=== PATIENT | female | born 1960 | race Caucasian/White ===

== ENCOUNTER → 2020-01-19 07:17 | Outpatient (CLI) | payer OTHER, SELFPAY ==
--- NOTE | ~2020-01-19 | MM_ITS ---
EXAMINATION: MM screening to[facility] BI w flroes HISTORY: Screening mammogram, family history of breast cancer in her mother. TECHNIQUE: Craniocaudal and mediolateral oblique 3-D tomosynthesis images were obtained and synthetic 2-D images were generated. CAD analysis was submitted and interpreted. COMPARISON: 11/24/2018, 10/17/2017, 02/27/2016 BREAST PARENCHYMAL COMPOSITION: The breasts are almost entirely fatty. FINDINGS: There is no evidence of suspicious mass, calcification, or architectural distortion to sugg est malignancy in either breast. There has been no suspicious interval change. IMPRESSION: 1. No mammographic evidence of malignancy. 2. Recommend routine screening mammography in one year. BI-RADS Category 1: Negative Reviewed, dictated and finalized at location A. [employer]
== END ==
PROVIDERS: Visit Provider Obstetrics & Gynecology
DX: Z12.31 Encounter for screening mammogram for malignant neoplasm of breast (principal)
CPT/HCPCS: 77063; 77067

== ENCOUNTER → 2021-09-05 10:45 | Outpatient (CLI) | payer OTHER, SELFPAY ==
--- NOTE | ~2021-09-05 | MM_ITS ---
EXAMINATION: MM screening to[facility] BI w flores HISTORY: Screening TECHNIQUE: Craniocaudal and mediolateral oblique 3-D tomosynthesis images were obtained and synthetic 2-D images were generated. CAD analysis was submitted and interpreted. COMPARISON: Comparison to multiple prior studies sequentially, with oldest reviewed study dated 02/09. BREAST PARENCHYMAL COMPOSITION: Breast composition is almost entirely fatty FINDINGS: There is no evidence of suspicious mass, calcification, or architectural distortion to sugg est malignancy in either breast. There has been no suspicious interval change. IMPRESSION: 1. No mammographic evidence of malignancy. 2. Recommend routine screening mammography in one year. BI-RADS Category 1: Negative Reviewed, dictated and finalized at location A.
--- NOTE | ~2021-09-05 | XR_ITS ---
XR hip LT 2V w AP pelvis DATE: 09/05/2021 11:51 INDICATION: Left hip pain TECHNIQUE: AP pelvis AP and lateral views of left hip COMPARISON: None FINDINGS: The pubic symphysis and sacroiliac joints are intact. No pelvic fracture or bone destructio n. There is moderate osteoarthritic change at both hip joints including moderate joint space narrowing a nd spurring. No fracture or dislocation, avascular necrosis or bone destruction of the left hip is de tected. There is a very prominent amount of fecal material in the colon. IMPRESSION: Moderately prominent bilateral hip osteoarthritis Reviewed, dictated and finalized at location B.
== END ==
PROVIDERS: PCP Emergency Medicine; Visit Provider Emergency Medicine
DX: Z12.31 Encounter for screening mammogram for malignant neoplasm of breast (principal); M16.12 Unilateral primary osteoarthritis, left hip
CPT/HCPCS: 73502; 77063; 77067

== ENCOUNTER 2021-12-01 10:56 | Outpatient (CLI) | payer OTHER, SELFPAY ==
--- NOTE | ~2021-12-01 | XR_ITS ---
XR knee RT 2V DATE: 12/01/2021 11:28 INDICATION: Chronic right knee pain TECHNIQUE: AP and lateral views COMPARISON: None FINDINGS: There is mild periarticular spurring at the patellofemoral and lateral compartment. Moderately prominent loss of interspace height and more prominent periarticular spurring at the media l compartment. No fracture or dislocation or joint effusion. No radiopaque interarticular loose body or chondrocalci nosis is detected. No periosteal reaction or bone destruction. IMPRESSION: Tricompartment osteoarthritis, most pronounced at the medial compartment Reviewed, dictated and finalized at location B. IMPRESSION: Tricompartment osteoarthritis, most pronounced at the medial compar tment
--- NOTE | ~2021-12-01 | XR_ITS ---
XR_CERV2-3V_CR DATE: 12/01/2021 11:27 INDICATION: Chronic neck pain TECHNIQUE: AP, open-mouth, lateral views COMPARISON: None FINDINGS: There is straightening of the upper cervical spine and reversal of curvature of the lower c ervical spine. C1 and C2 are normally aligned and the odontoid process is intact. There is mild spurring at C2-3 and C3-4 but these interspaces are relatively preserved. Mild loss of interspace height, mild anterior spurring and minimal anterolisthesis at C4-5. Moderately prominent degenerative disc disease, moderate anterior spurring and mild anterolisthesis a t C5-6 Moderately severe degenerative disease at C6-7. There is prominent degenerative change at the apophyseal joints throughout the cervical spine. Promin ent uncovertebral joint spurring is noted at C5-6 and C6-7. IMPRESSION: Straightening and reversal of cervical curvature Multilevel degenerative disc disease Prominent degenerative change at the apophyseal joints throughout the cervical spine and uncovertebra l joint spurring in the lower cervical spine Reviewed, dictated and finalized at Location A. Reviewed, dictated and finalized at location B. IMPRESSION: Straightening and reversal of cervical curvature Multilevel degenerative disc disease Prominent degenerative change at the apophyseal joints throughout the cervical spine and uncovertebral joint spurring in the lower cervical spine
--- NOTE | ~2021-12-01 | XR_ITS ---
XR knee LT 2V DATE: 12/01/2021 11:27 INDICATION: Chronic left knee pain TECHNIQUE: AP and lateral views COMPARISON: None FINDINGS: There is minimal periarticular spurring of the patella consistent with mild osteoarthritis. Moderately prominent loss of medial joint space with mild periarticular spurring at the medial compar tment. Slight. There is spurring at the lateral compartment. No fracture or dislocation or destructive joint effusion is evident. No radiopaque intra-articular lo ose body or chondrocalcinosis. No periosteal reaction or bone destruction. Femoral, popliteal artery calcification. IMPRESSION: Tricompartment osteoarthritis, most prominent at the medial compartment Reviewed, dictated and finalized at location B. IMPRESSION: Tricompartment osteoarthritis, most prominent at the medial compart ment
--- NOTE | ~2021-12-01 | XR_ITS ---
XR lumbar spine 2-3V DATE: 12/01/2021 11:27 INDICATION: Chronic back pain TECHNIQUE: AP, lateral, coned lateral lumbosacral views COMPARISON: None FINDINGS: There is osteopenia. Transitional lumbosacral vertebra. There is severe degenerative disc disease at the last functional lumbar vertebra with articulation wi th the transitional lumbosacral vertebra. Immediately above this level is grade 1 anterolisthesis. No fracture or bone destruction. There is degenerative change at the apophyseal joints. The sacroiliac joints are intact. IMPRESSION: Transitional lumbosacral vertebra Severe degenerative disc disease between last functional lumbar vertebra and transitional vertebra Grade 1 anterolisthesis at the articulation of the third and fourth functional lumbar vertebrae, due to degenerative change at the apophyseal joints Reviewed, dictated and finalized at location B. IMPRESSION: Transitional lumbosacral vertebra Severe degenerative disc disease between last functional lumbar vertebra and tr ansitional vertebra Grade 1 anterolisthesis at the articulation of the third and fourth functional lumbar vertebrae, due to degenerative change at the apophyseal joints
== END 2021-12-01 10:57 ==
PROVIDERS: PCP Emergency Medicine; Visit Provider Emergency Medicine
DX: G89.29 Other chronic pain (principal); M17.0 Bilateral primary osteoarthritis of knee; M51.36 Other intervertebral disc degeneration, lumbar region; M50.30 Other cervical disc degeneration, unspecified cervical region
CPT/HCPCS: 72040; 72100; 73560

== ENCOUNTER 2022-01-10 07:49 | Outpatient (RCR) | payer OTHER, SELFPAY ==
--- NOTE | 2022-01-10 09:27 | PTOPEVAL1 ---
Assessment and note entered by Geraldo Walsh, PT Evaluation Information Assessment Status Evaluation Diagnosis low back pain with REINA sciatica worse on L side Onset gradual, but increase after fall in August Subjective Information Patient reports prior to her fall she was starting a walking program and feeling better also lost 37 pounds which she has gained some weight back since August. She has trouble sleeping through the night, walking for anymore than 3-4 minutes, and getting in/out fo the car. Previously did physical therapy for her DDD in her neck. Reported Pain Level Pain Score 3: Self Report Assessment PT Clinical Summary Junie is a 61 year old female coming into the clinic for low back pain with REINA sciatica symptoms worse on the L side. She reports trouble with walking or being on her feet for more than 3-4 minutes, getting in and out of her car, and sleeping. She shows weakness in her core and in her L hip and knee extensors, pain radiating from her back to her REINA knees. Crepitus felt in the L patella. Physical therapy will work on improving strength in her core and L leg which should better support her spine and hopefully her in better alignment which will minimize sciatic symptoms. Patient will also have access to modalities to help with pain control while working on her strengthening and flexibility. With less pain should be able to improve her functional mobility. Plan of Care Interventions Electrical Stimulation,Gait Training,Hot Pack/Cold Pack,Manual Therapy,Mechanical Traction,Neuro Re- education,Patient/Caregiver Education,Therapeutic Activities,Therapeutic Exercise,Ultrasound PT Services Indicated Yes Treatment Frequency and 1x/wk for 4 weeks Duration These treatments will address the objective and functional deficits as defined above. The patient will be advanced safely and appropriately in order for the patient to progress towards his/her prior level of function. Additional exercises will be introduced and as well as a comprehensive home exercise program upon discharge, if needed, ?to ensure carryover of functional gains achieved in the clinic. This treatment plan has been reviewed and agreement upon by the patient.
--- NOTE | 2022-01-22 15:44 | PCPTNOTE ---
Patient left message that she no longer needs therapy here. Her doctor had her going to 2 places and she is just going to do it all at the other location.
--- NOTE | 2022-01-22 15:47 | PTOPDC ---
Assessment and note entered by Geraldo Walsh, PT Evaluation Information Assessment Status Evaluation Diagnosis low back pain with REINA sciatica worse on L side Onset gradual, but increase after fall in August Subjective Information Patient no longer need therapy here. Her doctor had her going to do 2 places and she is just going to go to do it all at the other location.
== END 2022-01-23 08:50 | disposition home or self-care (01) ==
LOC: ANHPT 07:49
PROVIDERS: PCP Emergency Medicine; Visit Provider Emergency Medicine
DX: M47.812 Spondylosis without myelopathy or radiculopathy, cervical region (principal)
CPT/HCPCS: 97110; 97161

== ENCOUNTER 2022-03-12 10:40 | Emergency (ER) | payer OTHER, SELFPAY ==
[2022-03-12 10:51] VITALS: BP 136/74; PULSE 83; RESP 16; TEMP 37.2; O2SAT 98
--- NOTE | 2022-03-12 11:08 | ED.URI ---
HPI - URI/Sore Throat General Chief Complaint: Upper Respiratory Infection Stated Complaint: Cough/Ear Irritation Time Seen by Provider: 03/12/22 11:11 Source: patient, RN notes reviewed and old records reviewed Mode of arrival: ambulatory Limitations: no limitations History of Present Illness HPI Narrative: 61-year-old female presents to the [facility] of cough and ear discomfort. Has a history of COPD and diabetes Has tried kzeb-fkz-jfojegb cold medicine but has not been using her Flonase Related Data Home Medications Medication Instructions Recorded Confirmed cholecalciferol (vitamin D3) 125 5,000 unit PO DAILY 04/19/19 05/01/21 mcg (5,000 unit) tablet multivitamin 1 tablet PO .COMPLEX 04/19/19 05/01/21 omega 8-dlf-cke-fish oil 300 1 cap PO BID 04/20/19 05/01/21 mg-1,000 mg capsule (Fish Oil) Allergies Allergy/AdvReac Type Severity Reaction Status Date / Time Penicillins Allergy Unknown Unknown Verified 03/12/22 10:53 Review of Systems Review of Systems: All systems reviewed & are unremarkable except as noted in HPI and below Constitutional: Constitutional: Reports no additional constitutional complaints Eyes: Eyes: Reports no additional eye complaints ENT: Reports as per HPI Cardiovascular: Cardiovascular: Reports no additional cardiovascular complaints, Denies chest pain and Denies dyspnea Respiratory: Respiratory: Reports as per HPI, Denies chest congestion, Reports cough and Denies dyspnea Gastrointestinal: Gastrointestinal: Reports no additional gastrointestinal complaints, Denies abdominal pain, Denies nausea and Denies vomiting Musculoskeletal: Musculoskeletal: Reports no additional musculoskeletal complaints Integumentary/Breasts: Skin/Breast: Reports system reviewed and no additional complaints, except as docu Neurologic: Reports system reviewed and no additional complaints, except as documented Psychiatric: Psychiatric: Reports no additional psychiatric complaints Allergic/Immunologic: Allergic/Immunologic: Reports no additional allergic/immunologic complaints PMFSH Past Medical History Medical History Acute otitis externa of left ear Body mass index (BMI) of 50-59.9 in adult (02/18/17) Bronchitis Cervical spine pain Diabetes mellitus, type II Elevated liver enzymes Essential (primary) hypertension Mild episode of recurrent major depressive disorder Mixed hyperlipidemia Morbid (severe) obesity due to excess calories Osteoarthritis of lower back Other chronic pain Post-nasal drip Restless leg syndrome, controlled Rhinosinusitis Vitamin D deficiency Family History Family History Father Family history of malignant neoplasm of brain, Onset Age: 68 Mother Family history of malignant neoplasm of breast in first degree relative, Onset Age: 64 Other Lung cancer Social History Social History Smoking status: Former smoker Second hand tobacco smoke exposure: No Smoking end date: 03/11/01 Alcohol intake: never Substance use: never Substance use type: does not use Gender identity (if verbalized by the patient): Female Spiritual care concerns: No Agree to blood products: Yes Comments At the time of my signature, I reviewed and agree with the nursing past medical, surgical, social, and family history. There is no relevant family history pertinent to the patient complaint. Exam Const: General: cooperative, healthy appearing, comfortable, no acute distress, well developed, alert and well nourished Nutritional Appearance: well nourished and obese Orientation/consciousness: patient oriented x3 Limitations: no limitations HENMT: Head: normal to inspection Ears: hearing grossly normal bilaterally, external ears normal, EAC's normal and TM abnormal with fluid behind the TM on the le
== END 2022-03-12 11:27 | disposition home or self-care (01) ==
PROVIDERS: Emergency Provider Nurse Practitioner; PCP Emergency Medicine
DX: J32.9 Chronic sinusitis, unspecified (principal); J40 Bronchitis, not specified as acute or chronic; H65.02 Acute serous otitis media, left ear; Z87.891 Personal history of nicotine dependence; E11.9 Type 2 diabetes mellitus without complications; I10 Essential (primary) hypertension; E78.2 Mixed hyperlipidemia; E66.01 Morbid (severe) obesity due to excess calories; Z68.41 Body mass index [BMI] 40.0-44.9, adult; M47.816 Spondylosis without myelopathy or radiculopathy, lumbar region; G25.81 Restless legs syndrome; E55.9 Vitamin D deficiency, unspecified; J44.9 Chronic obstructive pulmonary disease, unspecified
CPT/HCPCS: 99213; G0463

== ENCOUNTER → 2022-06-07 08:15 | Outpatient (CLI) | payer OTHER, SELFPAY ==
--- NOTE | ~2022-06-07 | CT_ITS ---
EXAMINATION: CT sinus wo con DATE: 06/07/2022 08:36 INDICATION: Acute sinusitis TECHNIQUE: Computed tomography (CT) of the paranasal sinuses was performed without contrast. Iterativ e reconstruction technique was employed. Exam dose: 272.93 mGy-cm total exam DLP. COMPARISON: None FINDINGS: Minimal rightward bowing of the nasal septum. The nasal turbinates are unremarkable. Bilateral nasal antral windows. There is minimal nuchal periosteal thickening of the maxillary sinuses, primarily inferiorly. The rem ainder of the paranasal sinuses are normally developed and aerated. The mastoid air cells are normally developed bilaterally, normally aerated on the right. There are ef fusions of some left mastoid air cells. IMPRESSION: Bilateral nasal antral windows Minimal mucoperiosteal thickening of the lower portion of the maxillary sinuses Left mastoid air cells partial opacification Reviewed, dictated and finalized at Location A. Reviewed, dictated and finalized at location L.
== END ==
PROVIDERS: PCP Emergency Medicine; Visit Provider Emergency Medicine
DX: J01.90 Acute sinusitis, unspecified (principal); R93.0 Abnormal findings on diagnostic imaging of skull and head, not elsewhere classified
CPT/HCPCS: 70486

== ENCOUNTER 2022-10-22 09:00 | Outpatient (RCR) | payer OTHER, SELFPAY ==
--- NOTE | 2022-09-26 08:41 | OPREHPOC ---
Outpatient Therapy Plan of Care This is a Multidisciplinary Plan of Care that may contain components documented by all disciplines (PT, OT, and ST.) PT Problem 1 PT Problem #1 Knowledge Deficit PT Goal 1 Goal Independent with HEP Target Visit 8 PT Problem 2 PT Problem #2 Pain PT Goal 1 Goal decrease pain to 8/10 throughout the day Target Visit 8 PT Problem 3 PT Problem #3 Impaired Sensation PT Goal 1 Goal decrease numbness and tingling in the L UE with movement. Target Visit 8 PT Problem 4 PT Problem #4 Impaired Strength PT Goal 1 Goal Patient to be able to do 20 chin tucks without pain Target Visit 8 PT Problem 5 PT Problem #5 Impaired Range of Motion PT Goal 1 Goal Increase REINA cervical rotation to 60 degrees Target Visit 8 PT Goal 2 Goal Increase lumbar ext to 10 degrees. Target Visit 8
--- NOTE | 2022-09-26 08:42 | PTOPEVAL1 ---
Assessment and note entered by Geraldo Walsh, PT Evaluation Information Assessment Status Evaluation Diagnosis Lumbar and cervical spondylolisthesis Onset Chronic Subjective Information Patient reports having chronic back and neck issues. Unable to do elective back surgery secondary to BMI. Patient has trouble getting in and out of bed and the car, sleeping, walking and at work sitting at her desk looking at her monitors. Patient takes tramadol to help her sleep and has tried Aspercreme topical ointments. Patient reports her L arm will go numb quickly depending on how she positions it. Reported Pain Level Pain Score 10: Self Report Additional Pain Score Comments Patient reports it currently at a 9.5 and goes up to a 20/10. Assessment PT Clinical Summary Junie is a 61 year old female coming into the clinic with lumbar and cervical spondylolisthesis. Patient has decreased core and scapular strength to go with poor posture. Physical therapy will work with improving patient's deficits with gentle stretching, strengthening, modalities, and manual therapy. Plan of Care Interventions Electrical Stimulation,Gait Training,Hot Pack/Cold Pack,Manual Therapy,Mechanical Traction,Neuro Re- education,Patient/Caregiver Education,Therapeutic Activities,Therapeutic Exercise,Ultrasound Other Interventions cupping, taping, IASTM PT Services Indicated Yes Treatment Frequency and 1-2x/wk for 4 weeks Duration These treatments will address the objective and functional deficits as defined above. The patient will be advanced safely and appropriately in order for the patient to progress towards his/her prior level of function. Additional exercises will be introduced and as well as a comprehensive home exercise program upon discharge, if needed, ?to ensure carryover of functional gains achieved in the clinic. This treatment plan has been reviewed and agreement upon by the patient.
--- NOTE | 2022-10-11 08:02 | PCPTNOTE ---
Pt cancelled her appt this morning due to illness.
--- NOTE | 2022-10-18 08:05 | PCPTNOTE ---
Pt had to cancel this am for family emergency
--- NOTE | 2022-10-22 11:42 | PTOPDC ---
Assessment and note entered by Geraldo Walsh, PT Evaluation Information Assessment Status Discharge Diagnosis Spondylolisthesis Lumbar and cervical region Onset Chronic Subjective Information Patient reports she does not feel better since starting physical therapy. Still having days of extreme severe pain along with numbness and tingling going down her L arm. Patient is showing some interest in aquatic therapy, but wants to check with insurance first to see how many more days of therapy she has as she is hopeful for a back procedure sometime this year and wants to save visits for post procedure. Reported Pain Level Pain Score 8: Self Report Assessment PT Clinical Summary Junie is a female coming into the clinic with a diagnosis of Spondylolisthesis of Lumbar and cervical region. The patient was evaluated on and has attended 8 visits. Patient has not made significant improvement with range of motion, strength, pain control, or radiating symptoms. Recommend discontinuation of land based physical therapy, but possibly starting aquatic therapy once patient confirms her insurance covers it to see if the decreased stress on the joints would allow her to participate more and allow for decrease in symptoms. Patient is discharged from therapy currently, with expectation to contact doctor for new order if insurance approves aquatic therapy. Plan of Care PT Services Indicated Yes
== END 2022-10-22 13:02 | disposition home or self-care (01) ==
LOC: ANHPT 09:00
PROVIDERS: PCP Emergency Medicine; Visit Provider Neurological Surgery
DX: M43.16 Spondylolisthesis, lumbar region (principal); M43.12 Spondylolisthesis, cervical region
CPT/HCPCS: 97012; 97014; 97110; 97140; 97161; 97530; G0283

== ENCOUNTER 2022-11-05 08:19 | Outpatient (CLI) | payer OTHER, SELFPAY ==
[2022-11-05 09:00] LABS: Alanine Aminotransferase 22 U/L (6-35); Albumin Level 4.1 g/dL (3.5-5.1); Alkaline Phosphatase 106 U/L (38-126); Anion Gap 5 mmol/L (8-16); Aspartate Amino Transferase 27 U/L (14-36); Bilirubin,Total 0.4 mg/dL (0.2-1.3); Blood Urea Nitrogen 12 mg/dL (7-17); Calcium 8.7 mg/dL (8.4-10.2); Carbon Dioxide 31 mmol/L (22-30); Chloride 96 mmol/L (98-107); Cholesterol 160 mg/dL (0-200); Estimated Glomerular Filt Rate > 60; Glucose 137 mg/dL (65-110); HDL Direct 48 mg/dL; Potassium 4.3 mmol/L (3.4-5.0); Sodium 132 mmol/L (137-145); Triglycerides 146 mg/dL (<150)
[2022-11-05 09:11] LABS: LDL Cholesterol Direct 87 mg/dL
[2022-11-05 09:53] LABS: Hemoglobin A1C 6.5 % (<5.7)
== END 2022-11-05 08:20 | disposition home or self-care (01) ==
LOC: ANHLAB 08:20
PROVIDERS: PCP Emergency Medicine; Visit Provider Emergency Medicine
DX: E78.5 Hyperlipidemia, unspecified (principal); E11.9 Type 2 diabetes mellitus without complications
CPT/HCPCS: 36415; 80053; 80061; 83036

== ENCOUNTER 2023-08-07 10:46 | Outpatient (CLI) | payer OTHER, SELFPAY ==
--- NOTE | ~2023-08-07 | MR_ITS ---
MRI of the lumbar spine Clinical History: Spinal stenosis Technique: Axial T2-weighted images, and sagittal T1-weighted, T2-weighted, and and T2 fat-sat images were acquired. Findings: No fracture identified. Minimal grade 1 anterolisthesis of L4 over L5 noted. No significant bone marrow signal reality seen. At L1-L2 and L2-L3, there is no disc bulge or herniation. There are moderate facet joint degenerative changes at these levels. No spinal canal stenosis or neural foraminal narrowing at these levels. At L3-L4, there is diffuse disc bulge with severe facet arthropathy. There is a [address] There is severe spinal canal stenosis/thecal sac compression. There is mild to moderate bilateral neural foraminal narrowing. At L4-L5, there is diffuse disc bulge and severe facet arthropathy, with severe spinal canal stenosis /thecal sac compression. There is mild to moderate bilateral neural foraminal narrowing. At L5-S1, there is moderate to advanced degenerative disc narrowing. There is mild diffuse disc bulge with moderate facet arthropathy. No central canal stenosis. There is moderate bilateral neural russell inal narrowing. Paravertebral soft tissues are unremarkable. Impression: Advanced degenerative spondylosis, especially at L3-L4 and L4-L5, as detailed above. Reviewed, dictated and finalized at [facility]. Impression: Advanced degenerative spondylosis, especially at L3-L4 and L4-L5, as detailed jermaine louie.
== END 2023-08-07 10:47 ==
PROVIDERS: PCP Emergency Medicine; Visit Provider Neurological Surgery
DX: M48.061 Spinal stenosis, lumbar region without neurogenic claudication (principal); M47.896 Other spondylosis, lumbar region
CPT/HCPCS: 72148

== ENCOUNTER 2023-09-11 09:24 | Outpatient (CLI) | payer OTHER, SELFPAY ==
--- NOTE | 2023-09-11 09:50 | ECG_ITS ---
Test Date: 2023-09-11 10:08:03 Measurements Intervals [place] Rate: 85 P: 55 DE: 150 QRS: 54 QRSD: 100 T: 29 QT: 344 QTc: 410 Interpretive Statements SINUS RHYTHM DELAYED PRECORDIAL R/S TRANSITION BASELINE ARTIFACT- I, II, III, AVR, AVL, AVF, V1, V3-V6 BORDERLINE ECG No previous ECG available for comparison Electronically Signed On 09-11-2023 10:48:22 CDT by Vipul Quinteros D.O.
[2023-09-11 10:52] LABS: Hematocrit 40.8 % (37.0-47.0); Hemoglobin 13.9 g/dL (12.0-15.0); Mean Corpuscular HGB Conc 34.1 g/dl (32-36); Mean Corpuscular Hemoglobin 29.2 pg (26-34); Mean Corpuscular Volume 85.7 fl (80-100); Mean Platelet Volume 8.4 fl (7.4-10.4); Platelet Count Result 317 k/mm3 (150-375); Red Blood Count 4.76 M/mm3 (4.2-5.4); Red Cell Distribution Width 12.5 % (11.5-14.5); White Blood Count 7.2 K/mm3 (4.5-10.0)
[2023-09-11 11:03] LABS: Anion Gap 8 mmol/L (4-12); Blood Urea Nitrogen 7 mg/dL (7-17); Calcium 9.2 mg/dL (8.4-10.2); Carbon Dioxide 30 mmol/L (22-30); Chloride 94 mmol/L (98-107); Estimated Glomerular Filt Rate > 60; Glucose 115 mg/dL (65-110); Potassium 4.7 mmol/L (3.4-5.0); Sodium 132 mmol/L (137-145)
[2023-09-11 11:04] LABS: INR 0.9; Prothrombin Time 12.4 Seconds (11.1-14.7)
[2023-09-11 11:05] LABS: Partial Thromboplastin Time 29.6 Seconds (22.3-36.8)
[2023-09-11 11:19] LABS: Appearance Urine Clear (Clear); Bacteria Urine Rare /hpf; Bilirubin Urine Negative (Negative); Blood Urine Negative (Negative); Color Urine Yellow (Yellow); Glucose Urine UA Negative (Negative); Ketones Urine Negative (Negative); Leukocyte Esterase Ur 2+ LEU/UL (Negative); Need Manual Microscopic Reviewed; Nitrate Urine Negative (Negative); Non Pathogenic Casts 0-2; Protein Urine Negative (Negative); RBC Urine 0-2 /hpf (0-2); Specific Grav Ur 1.008 (1.001-1.035); Squamous Epithelial Cell Urine Few /hpf (Few); Urobilinogen Urine 0.2 mg/dL (<2.0); WBC Urine 0-5 /hpf (0-3); pH Urine 7.5 (5.0-9.0)
[2023-09-11 11:22] LABS: Add Urine Microscopic? YES
== END 2023-09-11 09:25 | disposition home or self-care (01) ==
PROVIDERS: PCP Emergency Medicine; Visit Provider Neurological Surgery
DX: M48.062 Spinal stenosis, lumbar region with neurogenic claudication (principal); I10 Essential (primary) hypertension; Z01.818 Encounter for other preprocedural examination; R94.31 Abnormal electrocardiogram [ECG] [EKG]
CPT/HCPCS: 36415; 80048; 81001; 85027; 85610; 85730; 93005

== ENCOUNTER 2023-09-18 00:56 | Day surgery (SDC) | payer OTHER, SELFPAY ==
[2023-09-09 13:57] VITALS: BMI 40.6
--- NOTE | 2023-09-09 13:59 | PC.NURSE ---
Report to the Outpatient Waiting Room, entrance under the green pavilion located off [facility], at time _0600_ on date _[id number]_. Planned Procedure Time: _0730_. Time changes happen often and if your time is changed the preop area will call you the afternoon before. - You and your visitor will be asked to self-screen and do not enter if you have any COVID symptoms. - A mask is optional within the hospital at this time. Patients may have clear liquids (water, carbonated beverages, clear teas, apple juice) until 3 hours prior to surgery with a maximum of 20 ounces. - No food from midnight until time of surgery Take the following medications with a SIP of water the morning of surgery: ___Flonase, Levothroxine, Metoprolol, and Venlafaxine. DO NOT STOP ANY OF YOUR OTHER PRESCRIPTION MEDICATIONS PRIOR TO SURGERY ?EXCEPT THE FOLLOWING Medications to discontinue per physician ___Turmeric, Fish oil and all vitamins Date to take last bfue___[phone] Please no make-up, nail slovenian, hairspray, perfume, deodorant, or body powder the day of surgery. No jewelry (including any body piercings) or valuables the day of surgery, leave them at home. Please take a shower or bath the night before, or the morning of, surgery with an antibacterial soap. Wear comfortable, loose fitting clothing. - Jewelry must be removed prior to entering the operating room. Rings and piercings that are not removed may be cut off. - The hospital will not accept responsibility for valuables. - Please leave all valuables, including medications, at home the day of surgery. If you are going home after surgery, a licensed rolloff driver must drive you home. - NO public transportation without another adult if you receive anesthesia. - We recommend that an adult stay with you for 24 hours following discharge. - We also recommend that you do not drive, make important decision, drink alcoholic beverages, or take any drugs that were not prescribed by your health care provider for at least 24 hours after your discharge time. Follow any additional instructions given to you from your surgeon. If you or anyone in your household have experienced Covid symptoms in the past week, please notify your surgeon or the nurse liaison at the phone number below for possible testing. Telephone instructions given to __Pam___and asked if any additional questions and then verbalized understanding. Patient advised to call surgeon office or pre surgery nurse liaison [phone] if any additional questions.
[2023-09-18] VITALS (18 sets, daily range): BP systolic 118–150; BP diastolic 53–73; PULSE 92–113; RESP 13–21; TEMP 36.1–37.5; O2SAT 93–100
--- NOTE | ~2023-09-18 | XR_ITS ---
EXAMINATION: XR fluoroscopy no charge DATE: 09/18/2023 10:42 INDICATION: Lumbar stenosis with neurogenic claudication. TECHNIQUE: A single lateral intraoperative fluoroscopic view of the lumbar spine was obtained. I was not present. Fluoroscopy exposure time was 3 seconds. COMPARISON: Lumbar spine MRI 08/07/2023 FINDINGS: There is severe lower lumbar spondylosis. An instrument overlies the posterior elements at L4-L5. IMPRESSION: 1. Severe lower lumbar spondylosis. Reviewed, dictated and finalized at location E.
[2023-09-18 06:47] LABS: Glucose Point of Care 116 mg/dl (65-105)
[2023-09-18] MEDS: LACTATED RINGERS 1,000 ML 30 ML IV CONT ×2 (06:57→10:38)
--- NOTE | 2023-09-18 07:16 | WPDANESEPPF ---
Anes - Initial Pre Proc Eval Procedure: Operation Date: 09/18/23 07:30 Proposed Procedures p L3-4, L4-5 Lumbar Laminectomy - Moon Valera MD Date/Time: 09/18/23 07:16 Surgeon: Moon Valera MD Pre Op Diagnosis: lumbar stenosis w/neuro claudication Patient Data Age: 62 Gender: F Height: 1.57 m Weight: 99.4 kg Last Vital Signs Temp 97.3 F L 09/18/23 07:07 Pulse 93 09/18/23 07:07 Resp 16 09/18/23 07:07 BP 130/73 09/18/23 07:07 Pulse Ox 100 09/18/23 07:07 O2 Del Method Room Air 09/18/23 07:07 Allergies Allergy/AdvReac Type Severity Reaction Status Date / Time Penicillins Allergy Unknown Rash Verified 09/18/23 06:16 Home Medications Medication Instructions Recorded Confirmed Type cholecalciferol (vitamin D3) 125 5,000 unit PO DAILY 04/19/19 09/18/23 History mcg (5,000 unit) tablet multivitamin 1 tablet PO .COMPLEX 04/19/19 09/18/23 History omega 1-koa-yyy-fish oil 300 1 cap PO BID 04/20/19 09/18/23 History mg-1,000 mg capsule (Fish Oil) blood sugar diagnostic (Accu-Chek #100 ea 05/15/21 09/09/23 Rx Patricia Plus test strips) lisinopril 20 mg tablet 20 mg PO DAILY #90 tabs 02/18/23 09/18/23 Rx venlafaxine 150 mg 150 mg PO DAILY #90 caps 02/18/23 09/18/23 Rx capsule,extended release 24 hr (Effexor XR) atorvastatin 20 mg tablet See Rx Instructions .Route 02/28/23 09/18/23 Rx .COMPLEX #90 tabs levothyroxine 75 mcg tablet See Rx Instructions .Route 02/28/23 09/18/23 Rx .COMPLEX #90 tabs metformin 1,000 mg tablet See Rx Instructions .Route 03/18/23 09/18/23 Rx .COMPLEX #180 tabs semaglutide 1 mg/dose (4 mg/3 mL) See Rx Instructions .Route 05/20/23 09/18/23 Rx subcutaneous pen injector (Ozempic) .COMPLEX #9 mL metoprolol tartrate 25 mg tablet See Rx Instructions .Route 08/12/23 09/18/23 Rx .COMPLEX #180 tabs tramadol 50 mg tablet 50 mg PO Q6H PRN pain #30 tabs 08/15/23 09/18/23 Rx cyclobenzaprine 5 mg tablet See Rx Instructions .Route 09/02/23 09/18/23 Rx .COMPLEX #180 tabs fluticasone propionate 50 See Rx Instructions .Route 09/02/23 09/18/23 Rx mcg/actuation nasal .COMPLEX #32 grams spray,suspension naproxen 500 mg tablet See Rx Instructions .Route 09/02/23 09/18/23 Rx .COMPLEX #180 tabs ascorbic acid (vitamin C) 500 mg 500 mg PO DAILY 09/09/23 09/18/23 History tablet (Vitamin C) ferrous sulfate 325 mg (65 mg 325 mg PO DAILY 09/09/23 09/18/23 History iron) tablet loratadine 10 mg tablet 10 mg PO DAILY 09/09/23 09/18/23 History thiamine HCl (vitamin B1) 100 mg 100 mg PO DAILY 09/09/23 09/18/23 History tablet (Vitamin B-1) turmeric 400 mg capsule 400 mg PO DAILY 09/09/23 09/18/23 History Laboratory Tests 09/18/23 06:43 POC Capillary Glucose 116 H mg/dl (65-105) Patient hx anesthesia problems: none Family hx anesthesia problems: none Results Review: All pre-operative results and documents have been reviewed as part of the pre-operative evaluation. [facility] Past Medical History Medical History Acute otitis externa of left ear Body mass index (BMI) of 50-59.9 in adult (02/18/17) Bronchitis Cervical spine pain Cervical spondylolysis Diabetes mellitus, type II Elevated liver enzymes Essential (primary) hypertension Mild episode of recurrent major depressive disorder Mixed hyperlipidemia Morbid (severe) obesity due to excess calories Osteoarthritis of lower back Other chronic pain Post-nasal drip Restless leg syndrome, controlled Rhinosinusitis Vitamin D deficiency Family History Family History Father Family history of malignant neoplasm of brain, Onset Age: 68 Mother Family history of malignant neoplasm of breast in first degree relative, Onset Age: 64 Sibling Alcoholism Cerebrovascular accident Thyroid disorder Father Cancer Hypertension Mother Ca
--- NOTE | 2023-09-18 07:16 | WPDHPUPDATE1 ---
History and Physical Update Update Date/Time: 09/18/23 07:16 History and Physical has been reviewed, including an updated exam of the patient. There are NO changes in the patient's condition. Risks, benefits, and alternatives have been discussed and questions answered. Patient agrees to proceed with procedure.
--- NOTE | 2023-09-18 07:16 | PM.IMHP ---
H&P: HPI History of Present Illness Date/Time: 09/18/23 07:16 Chief Complaint: back, leg pain Narrative: From 07/17: Ms. Tillman is a ? 62-year-old female with a long history of low back pain and leg pain for which she has seen Dr. Leon as well as Kamini in the past.? She has had a long history of these symptoms and describes both constant pain in her back and legs as well as pain that worsens with standing and walking.? She thinks leg pain might be worse than back pain.? She has had physical therapy, chiropractic treatment, epidural steroid injections at L4-5, and multiple medications without any longstanding relief.? She states that the injections were not helpful for her whatsoever.? She currently is taking tramadol, Flexeril, and ibuprofen.? She has tried gabapentin in the past without improvement.? She has had difficulty working towards weight loss but does appear to be down about 24 lb since her last visit. From 08/07: She denies any significant changes since her last visit. She continues to have severe low back pain radiating into legs with standing and walking in particular. She denies any numbness focal weakness in legs. She does describe some urinary urgency and frequency. Her diabetes is well controlled with recent A1c in May under 6%. She denies having COPD which is listed in medical history. She does not take any blood thinners. Review of Systems Review of Systems: All systems reviewed & are unremarkable except as noted in HPI and below PMFSH Past Medical History Medical History Acute otitis externa of left ear Body mass index (BMI) of 50-59.9 in adult (02/18/17) Bronchitis Cervical spine pain Cervical spondylolysis Diabetes mellitus, type II Elevated liver enzymes Essential (primary) hypertension Mild episode of recurrent major depressive disorder Mixed hyperlipidemia Morbid (severe) obesity due to excess calories Osteoarthritis of lower back Other chronic pain Post-nasal drip Restless leg syndrome, controlled Rhinosinusitis Vitamin D deficiency Family History Family History Father Family history of malignant neoplasm of brain, Onset Age: 68 Mother Family history of malignant neoplasm of breast in first degree relative, Onset Age: 64 Sibling Alcoholism Cerebrovascular accident Thyroid disorder Father Cancer Hypertension Mother Cancer Diabetes mellitus Depression Grandparent Diabetes mellitus Other Lung cancer Social History Social History Social History: Omaira is very confident filling out medical forms. In the last 12 months she has not received assistance from an organization or program. Smoking packs per day: 1 Smoking cigarettes per day: 20.0 Years smoked: 25 Smoking pack-years: 25.00 Smoking status: Former smoker Tobacco type: cigarettes Second hand tobacco smoke exposure: No Smoking end date: 09/08/00 Alcohol intake: former Substance use: never Substance use type: does not use Do You Feel Safe in your Home?: Yes Lack of Transportation: No Lack of Food: Never True Current Housing: I Have Housing Concerned About Future Housing: No Difficulty Paying Gas/Electric Bills: No Difficulty Paying for Meds: No Currently Unemployed: No Education: High School Diploma/GED Difficulty w/ Childcare or Family Care: No Living arrangements: with family Gender identity (if verbalized by the patient): Female Spiritual care concerns: No Agree to blood products: Yes Meds Home Medications and Allergies Home Medications Medication Instructions Recorded Confirmed Type cholecalciferol (vitamin D3) 125 5,000 unit PO DAILY 04/19/19 09/18/23 History mcg (5,000 unit) tablet multivitamin 1 tablet PO .COMPLEX 04/19/19 09/18/23 History omega 3-
[2023-09-18] MEDS: ceFAZolin 2 GM/D5W 50 ML 2 GM/50 ML BAG IVPB ×2 (07:34→16:35)
[2023-09-18] MEDS: BUPIVACAINE/EPINEPHRINE 0.5% 50 ML VIAL 30 ML INFILTRATE (08:06)
[2023-09-18] MEDS: BACITRACIN OINTMENT 15 GM TUBE 1 APPLIC TOPICAL (10:22)
--- NOTE | 2023-09-18 10:35 | PM.OP ---
Procedure Note - Brief Procedure Note - Brief Date of procedure: 09/18/23 lumbar stenosis w/neuro claudication Post-op diagnosis: Same Procedure performed: L3-4, L4-5 laminectomies Use of C=arm Use of microscope Surgeon: Moon Valera MD Anesthesia: GETA Findings: Large synovial cyst on left side at L3-4. Partially calcified PLL and osteophyte on right at L4-5. Able to separate both of these structures from dura without issue. Estimated blood loss (mL): 100 Drains: Yes Packing: No Pathology: None sent Complications: None Condition: Stable Disposition: PACU
[2023-09-18 10:49] LABS: Glucose Point of Care 174 mg/dl (65-105)
--- NOTE | 2023-09-18 10:49 | W.PM.PROC2 ---
Procedure Note - Detailed Date of Procedure 09/18/23 Pre-op Diagnosis lumbar stenosis w/neuro claudication Post-op Diagnosis Same Procedure Performed 1. L3-4, L4-5 laminectomies, medial facetectomies 2. Use of C-arm for fluoroscopy 3. Use of microscope for microsurgical dissection Surgeon Moon Valera MD [employer] Anesthesia General Indications Ms. Tillman is a 62-year-old female with long history of lower back and leg pain which worsens in particular with standing and walking. this has been resistant to physical therapy and epidural steroid injections. She has been working towards weight loss and is currently on Ozempic. She does not any focal neurologic deficit on physical exam but does ambulate in a flexed posture and antalgic gait. I reviewed her most recent MRI lumbar spine which shows a grade 1 anterolisthesis of L4 on L5 with severe central stenosis at L3-4 and L4-5. There is also a small left-sided synovial cyst at L3-4. She had dynamic lumbar x-rays a year ago that do not show obvious instability with flexion or extension. Given her lack of benefit with conservative treatment, I have offered her surgery in the form of L3-4 and L4-5 laminectomies. I stressed that this would most likely help with her leg symptoms and may help with her back pain to a degree, although I do not expect it to resolve all of her pain in her back. We discussed risks including pain, infection, bleeding, CSF leak, failure to relieve symptoms, nerve injury, weakness, paresthesias, and anesthetic complications. She gave written informed consent to proceed. Description of Procedure The patient was brought to the operating room, and general anesthesia was induced. The patient was placed prone on the open Angel table, and all pressure points were padded. Compression devices were placed on the patient's calves. The skin was cleaned with alcohol. The C-arm was brought onto the field to localize the appropriate disc space and assist with incisional planning. The area was prepped and draped in usual sterile fashion. A time out was conducted, and pre-operative antibiotics were administered. Local anesthesia was injected into the planned incision. A midline skin incision was made with a 10-blade scalpel, and dissection was carried down with the monopolar cautery to open the fascia. Once the spinous processes were located, a subperiosteal dissection was performed to expose the laminae bilaterally. A self-retaining retractor was placed. The C-arm was brought in to confirm the correct level. A Leksell rongeur was used to remove the spinous processes and posterior elements. The microscope was draped and brought into the field for microsurgical dissection. The high-speed drill was used to thin the laminae to the ligamentum flavum. A curved currette was used to separate the ligament from the bone. Kerrison rongeurs were then used to remove remaining laminae and ligamentum flavum. Medial facetectomies and foraminotomies were performed at L3-4, and L4-5 with the kerrison as well. On the left side at L3-4, there was a large synovial cyst which was carefully from the dura and removed. On close inspection at L4-5, there was a thin layer of ligamentum abovve the dura which appeared closer to dura in color and texture. This was in the midline to expose a large amount of epidural fat beneath and the actual dura. This false layer was largely able to be removed but was adherent to the dura superiorly .On the right side at L4-5, the ligamentum was partially calcified and adherent to an osteophyte. This was quite adherent to the dura as well and required slow and careful separation from the dura with a currette. Eventually, this was able to be removed. The dura appeared well decompressed. Hemostasis was ensured, and the area was copiously irrigated. No evidence of CSF leak was noted. A hemovac drain was placed and tunneled inferiorly. The muscle was loosely approximated with 0
[2023-09-18] MEDS: fentaNYL CITRATE INJ (*CRX) 100 MCG/2 ML VIAL 25 MCG IV PUSH ×2 (11:05→11:26)
--- NOTE | 2023-09-18 12:30 | ADMGEN ---
This patient, Omaira Tillman, was admitted to 2 Medical Room 254-01. Patient/family oriented to hospital policies and general routines including ID bracelet, bed and alarms, visiting hours, pain management, procedures, bathroom and other care routines, personal items, smoking policy, room service/diet, and visiting hours. Information on how to activate the Rapid Response Team has been discussed. Patient/Family are encouraged to report perceived risks to care and to ask questions if they do not understand what they are told or what they should do.
[2023-09-18] MEDS: SODIUM CHLORIDE 0.9% IV 1,000 ML 100 ML IV CONT (12:36)
[2023-09-18] MEDS: oxyCODONE HCL (*CRX) 5 MG TAB IR 10 MG PO ×2 (12:36→18:15)
[2023-09-18] MEDS: ACETAMINOPHEN 500 MG TABLET 1000 MG PO ×2 (12:37→18:14)
[2023-09-18 12:50] LABS: Glucose Point of Care 154 mg/dl (65-105)
[2023-09-18] MEDS: CYCLOBENZAPRINE HCL 10 MG TABLET PO (14:33)
--- NOTE | 2023-09-18 15:59 | PCPTNOTE ---
On 09/18/23, the student, [Dionne Cruz], provided care and completed [facility] documentation on this patient. I have reviewed the student's documentation and agree with the findings.
[2023-09-18 17:02] LABS: Glucose Point of Care 147 mg/dl (65-105)
[2023-09-18 19:41] LABS: Glucose Point of Care 195 mg/dl (65-105)
[2023-09-18] MEDS: DOCUSATE SODIUM 100 MG CAPSULE PO (20:51)
[2023-09-18] MEDS: METOPROLOL TARTRATE 25 MG TABLET BY MOUTH (20:52)
[2023-09-19] MEDS: ACETAMINOPHEN 500 MG TABLET 1000 MG PO ×3 (00:36→12:30)
[2023-09-19] MEDS: ceFAZolin 2 GM/D5W 50 ML 2 GM/50 ML BAG IVPB ×2 (00:37→08:36)
[2023-09-19 01:39] VITALS: BP 133/65; PULSE 84; RESP 20; TEMP 36.7; O2SAT 97
[2023-09-19] MEDS: oxyCODONE HCL (*CRX) 5 MG TAB IR 10 MG PO ×3 (02:09→15:07)
[2023-09-19 05:19] VITALS: BP 152/64; PULSE 93; RESP 18; TEMP 36.7; O2SAT 98
[2023-09-19] MEDS: LEVOTHYROXINE SODIUM 75 MCG TABLET BY MOUTH (06:28)
[2023-09-19 08:18] LABS: Glucose Point of Care 91 mg/dl (65-105)
[2023-09-19 08:33] VITALS: PULSE 78
[2023-09-19] MEDS: LORATADINE 10 MG TABLET PO (08:33)
[2023-09-19] MEDS: METOPROLOL TARTRATE 25 MG TABLET BY MOUTH (08:33)
[2023-09-19] MEDS: ATORVASTATIN 20 MG TABLET BY MOUTH (08:33)
[2023-09-19] MEDS: VENLAFAXINE HCL XR 75 MG CAP.ER.24H 150 MG PO (08:33)
[2023-09-19] MEDS: FERROUS SULFATE 325 MG TABLET DR BY MOUTH (08:35)
[2023-09-19] MEDS: MULTIVITAMINS THERAPEUTIC TAB (*BKC) 1 TABLET PO (08:35)
[2023-09-19] MEDS: DOCUSATE SODIUM 100 MG CAPSULE PO (08:35)
[2023-09-19] MEDS: CHOLECALCIFEROL 5,000 UNITS TABLET 5000 UNITS PO (08:35)
[2023-09-19] MEDS: ASCORBIC ACID 500 MG TABLET PO (08:35)
[2023-09-19] MEDS: lisinopriL 20 MG TABLET PO (08:35)
[2023-09-19] MEDS: THIAMINE HCL 100 MG TABLET PO (08:41)
[2023-09-19 09:27] VITALS: BP 117/56; PULSE 91; RESP 17; TEMP 36.4; O2SAT 97
[2023-09-19 12:00] VITALS: BP 138/85; PULSE 87; RESP 17; TEMP 36.4; O2SAT 96
[2023-09-19 12:09] LABS: Glucose Point of Care 104 mg/dl (65-105)
[2023-09-19] MEDS: CYCLOBENZAPRINE HCL 10 MG TABLET PO (12:30)
--- NOTE | 2023-09-19 14:05 | WPDANESPN ---
Anes - Prog Note Post-Op Date/Time: 09/19/23 14:05 Cardiovascular status: normal Respiratory status: normal Airway patency: baseline Mental status: baseline Post-Op hydration status: normal Vital Signs: Last Vital Signs Temp 36.4 C L 09/19/23 12:00 Pulse 87 09/19/23 12:00 Resp 17 09/19/23 12:00 BP 138/85 09/19/23 12:00 Pulse Ox 96 09/19/23 12:00 O2 Del Method Room Air 09/19/23 08:00 O2 Flow Rate 2 09/18/23 12:00 Pain Score (VAS): 2 I/O: Intake & Output 09/18/23 09/19/23 09/19/23 23:59 07:59 15:59 Intake Total 510 250 480 Output Total 80 60 Balance 430 250 420 09/18/23 09/18/23 09/19/23 16:57 19:27 08:14 POC Capillary Glucose 147 H 195 H 91 09/19/23 12:03 POC Capillary Glucose 104 Post-procedural complaints: none Patient Feedback: Patient satisfied with anesthetic care.
--- NOTE | 2023-09-19 14:35 | WPDNEUROSGPN ---
Progress Note: A&P Assessment and Plan (1) Status post lumbar laminectomy: Code(s): Z98.890 - Other specified postprocedural states Status: Acute Plan -Drain had fallen out already -DC home today -Wound care and activity precautions reviewed at bedside Subjective Date/time seen: 09/19/23 14:35 Interval history: Doing very well with some back pain but resolved leg pain. She ambulated in the halls. Voiding independently and tolerating PO intake Review of Systems Review of Systems: All systems reviewed & are unremarkable except as noted in HPI and below Exam Narrative: Dressing c/d/i Full strength in legs Sensation intact Objective Data Vital Signs Vital Signs: Vital Signs - 24 hr 09/18/23 15:03 09/18/23 15:30 09/18/23 17:40 Temperature 99.5 F Pulse Rate 99 Respiratory Rate 16 Blood Pressure 123/66 Pulse Oximetry 99 98 Oxygen Delivery Room Air Room Air 09/18/23 19:36 09/18/23 20:52 09/19/23 01:39 Temperature 97.5 F L 98.1 F Pulse Rate 94 92 84 Respiratory Rate 20 20 Blood Pressure 118/54 L 133/65 Pulse Oximetry 96 97 Oxygen Delivery 09/18/23 20:00 09/19/23 05:19 09/19/23 08:33 Temperature 98.1 F Pulse Rate 93 78 Respiratory Rate 18 Blood Pressure 152/64 H Pulse Oximetry 98 Oxygen Delivery Room Air 09/19/23 09:27 09/19/23 08:00 09/19/23 12:00 Temperature 97.5 F L 97.5 F L Pulse Rate 91 87 Respiratory Rate 17 17 Blood Pressure 117/56 L 138/85 Pulse Oximetry 97 96 Oxygen Delivery Room Air Intake/Output Intake/Output: Intake & Output 09/16/23 09/17/23 09/18/23 09/19/23 23:59 23:59 23:59 23:59 Intake Total 1175 730 Output Total 80 60 Balance 1095 670 Meds/Results Medications: Active Medications Generic Name Dose Route Start Last Admin Trade Name Freq PRN Reason Stop Dose Admin Acetaminophen 1,000 mg 09/18/23 12:00 09/19/23 12:30 Acetaminophen 500 Mg Tablet PO 1,000 mg Q6H SATYA Administration Al Hydrox/Mg Hydrox/Simethicone 20 ml 09/18/23 10:39 Mag Hydrox/Al Hydrox/Simeth 30 Ml Udc PO Q4H PRN Indigestion/Heartburn Ascorbic Acid 500 mg 09/19/23 09:00 09/19/23 08:35 Ascorbic Acid 500 Mg Tablet PO 500 mg DAILY SATYA Administration Atorvastatin Calcium 20 mg 09/19/23 09:00 09/19/23 08:33 Atorvastatin 20 Mg Tablet BY MOUTH 20 mg DAILY SATYA Administration Bisacodyl 10 mg 09/18/23 10:39 Bisacodyl 10 Mg Suppository RECTAL DAILY PRN Constipation Cyclobenzaprine HCl 10 mg 09/18/23 10:39 09/19/23 12:30 Cyclobenzaprine Hcl 10 Mg Tablet PO 10 mg TID PRN Administration Muscle Spasms Dextrose 12.5 gm 09/18/23 10:43 Dextrose 50% 25 Gm/50 Ml Syringe IV PUSH PRN PRN Hypoglycemia Protocol Docusate Sodium 100 mg 09/18/23 21:00 09/19/23 08:35 Docusate Sodium 100 Mg Capsule PO 100 mg Q12HR SATYA Administration Ferrous Sulfate 325 mg 09/19/23 09:00 09/19/23 08:35 Ferrous Sulfate [address] BY MOUTH 325 mg DAILY SATYA Administration Glucagon 1 mg 09/18/23 10:43 Glucagon For Inj 1 Mg Vial IM PRN PRN Hypoglycemia Protocol Glucose 15 gm 09/18/23 10:43 Glucose Oral Gel 15 Gm Of Glucse In 37.5 Gm Tube PO PRN PRN Hypoglycemia Protocol Cefazolin Sodium 2 gm in 50 mls @ 100 mls/hr 09/18/23 16:00 09/19/23 08:36 Ancef 2 Gm/D5w 50 Ml IVPB 100 mls/hr Q8H SATYA Administration Sodium Chloride 1,000 mls @ 100 mls/hr 09/18/23 10:40 09/18/23 14:21 Normal Saline Iv IV CONT 30 mls/hr .Q10H SATYA Infusion Dextrose 1,000 mls @ 100 mls/hr 09/18/23 10:43 Dextrose 5% 1,000 Ml IVPB PRN PRN Hypoglycemia Protocol Insulin Aspart 2 - 5 units 09/18/23 12:00 09/19/23 12:12 Insulin Aspart (*Bkc) 100 Units/Ml SUB-Q Not Given [facility] Protocol Levothyroxine Sodium 75 mcg 09/19/23 06:30 09/19/23 06:28 Levothyroxine Sodium 75 Mc
== END 2023-09-19 16:00 | disposition home or self-care (01) ==
LOC: ANHSURGERY 06:33 → ANH2MED 12:10
PROVIDERS: PCP Emergency Medicine; Visit Provider Neurological Surgery
PROC: (CPT 63005; principal; 2023-09-18 07:30)
DX: M48.062 Spinal stenosis, lumbar region with neurogenic claudication (principal); M43.06 Spondylolysis, lumbar region; I10 Essential (primary) hypertension; E11.9 Type 2 diabetes mellitus without complications; F33.9 Major depressive disorder, recurrent, unspecified; E78.2 Mixed hyperlipidemia; G89.29 Other chronic pain; G25.81 Restless legs syndrome; E55.9 Vitamin D deficiency, unspecified; E66.01 Morbid (severe) obesity due to excess calories; Z68.41 Body mass index [BMI] 40.0-44.9, adult; Z79.84 Long term (current) use of oral hypoglycemic drugs; Z79.85 Long-term (current) use of injectable non-insulin antidiabetic drugs; Z79.891 Long term (current) use of opiate analgesic; Z79.1 Long term (current) use of non-steroidal anti-inflammatories (NSAID); Z87.891 Personal history of nicotine dependence; Z80.8 Family history of malignant neoplasm of other organs or systems; Z80.3 Family history of malignant neoplasm of breast; Z80.1 Family history of malignant neoplasm of trachea, bronchus and lung; Z80.49 Family history of malignant neoplasm of other genital organs
CPT/HCPCS: 63047; 63048; 36415; 80048; 81001; 82948; 85027; 85610; 85730; 93005; 97116; 97161; 97165; 97530; 97535; 99199; A9270; J0690; J1100; J1170; J2405; J2704; J3010; J7030; J7120

== ENCOUNTER 2023-11-18 13:00 | Outpatient (CLI) | payer SELFPAY ==
--- NOTE | ~2023-11-18 | XR_ITS ---
EXAM: XR lumbar spine min 4V DATE: 11/18/2023 13:44 HISTORY: Z98.890 - Other specified postprocedural states . COMPARISON: 12/01/2021; MR L-spine 08/07/2023. FINDINGS: Detail limited by body habitus. 5 nonrib-bearing lumbar-type vertebral bodies. Bilateral s acralization of L5. No pars defect. Pedicles intact. 7 mm anterolisthesis at L2-3. 8 mm anterolisthes is at L3-4. Vertebral body heights preserved. Severe disc space narrowing at L4-5 and L5-S1. Multilev el moderate facet hypertrophy and sclerosis in the mid and lower lumbar spine. No fracture or disloca tion. Aortic calcification without evident aneurysm. IMPRESSION: Transitional anatomy. Recommend careful attention to spinal levels if any intervention is planned and consider radiographs of the entire spine for confirmation. Grade 1 anterolistheses at L2-3 and L3-4. Severe degenerative disc disease L4-5 and L5-S1. Multilevel moderate facet arthropathy. Reviewed, dictated and finalized at location K. IMPRESSION: Transitional anatomy. Recommend careful attention to spinal levels if any inter vention is planned and consider radiographs of the entire spine for confirmatio n. Grade 1 anterolistheses at L2-3 and L3-4. Severe degenerative disc disease L4-5 and L5-S1. Multilevel moderate facet arthropathy.
== END 2023-11-18 13:01 | disposition home or self-care (01) ==
PROVIDERS: PCP Neurological Surgery; Visit Provider Neurological Surgery
DX: Z98.890 Other specified postprocedural states (principal)
CPT/HCPCS: 72110

== ENCOUNTER 2023-12-20 10:47 | Outpatient (CLI) | payer OTHER, MEDICARE, SELFPAY ==
--- NOTE | ~2023-12-20 | MR_ITS ---
MRI of the lumbar spine Clinical History: Radiculopathy Technique: Axial T2-weighted images, and sagittal T1-weighted, T2-weighted, and T2 fat-sat images wer e acquired. COMPARISON: 08/07/2023 Findings: No fracture. Stable minimal grade one antral ceases L4-L5. No bone marrow signal abnormalit y seen. At L1-L2 and L2-L3, there is no disc bulge or herniation. There is mild to moderate facet arthropathy . No spinal canal stenosis or neural foraminal narrowing at these levels. At L3-L4, there is mild diffuse disc bulge with severe facet arthropathy. There is moderate to advanc ed spinal canal stenosis. Neural foramina are minimally narrowed. There is prior posterior decompress ion. At L4-L5, there is disc bulge and severe facet arthropathy, resulting in severe spinal canal stenosis . There is mild to moderate bilateral neural foraminal narrowing. There is prior posterior decompress ion. At L5-S1, there is moderate degenerative disc narrowing. There is minimal disc bulge and moderate fac et arthropathy. No central canal stenosis. There is mild to moderate bilateral neural foraminal narro wing. Paravertebral soft tissues are unremarkable, aside from posterior postoperative change. Impression: Advanced degenerative spondylosis at L3-L4 and L4-L5. Moderate degenerative spondylosis at L5-S1. Interval posterior decompression at L3-L4 and L4-L5. Reviewed, dictated and finalized at [facility]. Impression: Advanced degenerative spondylosis at L3-L4 and L4-L5. Moderate degenerative spo ndylosis at L5-S1. Interval posterior decompression at L3-L4 and L4-L5.
== END 2023-12-20 10:48 | disposition home or self-care (01) ==
LOC: MICIMG 10:48
PROVIDERS: PCP Emergency Medicine; Visit Provider Neurological Surgery
DX: M47.26 Other spondylosis with radiculopathy, lumbar region (principal)
CPT/HCPCS: 72148

== ENCOUNTER 2023-12-30 14:05 | Outpatient (CLI) | payer MEDICARE, OTHER, SELFPAY ==
--- NOTE | ~2023-12-30 | XR_ITS ---
XR hip BI wo pelvis 12/30/2023 14:40 Indication: Right hip pain Procedure: 2 views each hip Comparison: 09/05/2021. Findings: There has been progression of severe bilateral osteoarthritis of the hips. 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 No acute fracture or traumatic malalignment. Impression: 1: Interval progression of severe bilateral osteoarthritis of the hips with developing osteonecrosis of the femoral heads. Reviewed, dictated and finalized at location B. Impression: 1: Interval progression of severe bilateral osteoarthritis of the hips with dev eloping osteonecrosis of the femoral heads.
--- NOTE | ~2023-12-30 | XR_ITS ---
EXAMINATION: XR lumbar spine min 4V DATE: 12/30/2023 14:40 INDICATION: Lumbar radiculopathy TECHNIQUE: Standing anteroposterior, lateral in neutral, flexion and extension and coned-down lateral lumbosacral views of the lumbar spine were obtained. COMPARISON: Lumbar spine MR dated 12/10/2023 and radiographs dated 11/19/2023 FINDINGS: Transitional, bilaterally sacralized L5 segment with 4 more cephalad nonrib-bearing lumbar segments. Status post L3 and L4 laminectomies. 5-6 mm anterolisthesis of L2 on L3 and L3 on L4 in both neutral position and with flexion which reduces to 4 mm with extension. Vertebral body heights are normal. Mi ld disc height loss at L2-L3, moderate disc height loss at L3-L4 and severe disc height loss at L4-L5 . Severe facet osteoarthritis in the mid to lower lumbar spine. IMPRESSION: 1. 5-6 mm anterolisthesis L2 on L3 and L3 on L4 which remains unchanged with flexion but reduces to 4 mm at each level with extension. 2. Moderate to severe lower lumbar predominant spondylosis with prior L2 and L3 laminectomies. 3. Sacralized L5 segment. Reviewed, dictated and finalized at location A. IMPRESSION: 1. 5-6 mm anterolisthesis L2 on L3 and L3 on L4 which remains unchanged with fl exion but reduces to 4 mm at each level with extension. 2. Moderate to severe lower lumbar predominant spondylosis with prior L2 and L3 laminectomies. 3. Sacralized L5 segment.
== END 2023-12-30 14:06 | disposition home or self-care (01) ==
PROVIDERS: PCP Emergency Medicine; Visit Provider Neurological Surgery
DX: M47.26 Other spondylosis with radiculopathy, lumbar region (principal); M16.0 Bilateral primary osteoarthritis of hip
CPT/HCPCS: 72110; 73521

== ENCOUNTER 2024-06-12 11:17 | Outpatient (CLI) | payer MEDICARE, SELFPAY ==
[2024-06-12 12:10] LABS: Hematocrit 42.2 % (37.0-47.0); Hemoglobin 13.7 g/dL (12.0-15.0)
--- NOTE | 2024-06-12 12:24 | ECG_ITS ---
Test Date: 2024-06-12 12:34:58 Measurements Intervals [place] Rate: 99 P: 53 [place]: 149 QRS: 59 QRSD: 97 T: 30 QT: 337 QTc: 432 Interpretive Statements SINUS RHYTHM POSSIBLE LEFT ATRIAL ENLARGEMENT DELAYED PRECORDIAL R/S TRANSITION LOW QRS VOLTAGE IN LIMB LEADS BORDERLINE ECG Compared to ECG 09/11/2023 10:08:03 Low QRS voltage now present Electronically Signed On 06-12-2024 13:42:23 CDT by Vipul Quinteros D.O.
[2024-06-12 12:25] LABS: Alanine Aminotransferase 26 U/L (6-35); Albumin Level 4.4 g/dL (3.5-5.1); Alkaline Phosphatase 84 U/L (38-126); Anion Gap 10 mmol/L (4-12); Aspartate Amino Transferase 28 U/L (14-36); Bilirubin,Total 0.6 mg/dL (0.2-1.3); Blood Urea Nitrogen 21 mg/dL (7-17); Calcium 9.3 mg/dL (8.4-10.2); Carbon Dioxide 27 mmol/L (22-30); Chloride 99 mmol/L (98-107); Cholesterol 181 mg/dL (0-200); Estimated Glomerular Filt Rate > 60; Glucose 96 mg/dL (65-110); HDL Direct 63 mg/dL; Potassium 4.2 mmol/L (3.4-5.0); Sodium 136 mmol/L (137-145); Triglycerides 83 mg/dL (<150)
[2024-06-12 12:32] LABS: Hemoglobin A1C 5.4 % (<5.7)
[2024-06-12 12:37] LABS: LDL Cholesterol Direct 89 mg/dL
[2024-06-12 13:31] LABS: Vitamin D 25 Hydroxy 66.4 ng/mL
== END 2024-06-12 11:18 | disposition home or self-care (01) ==
LOC: ANHLAB 11:19
PROVIDERS: PCP Emergency Medicine; Referring Provider Emergency Medicine; Visit Provider Orthopaedic Surgery
DX: E11.9 Type 2 diabetes mellitus without complications (principal); E78.5 Hyperlipidemia, unspecified; E03.9 Hypothyroidism, unspecified; E55.9 Vitamin D deficiency, unspecified; M16.0 Bilateral primary osteoarthritis of hip; I10 Essential (primary) hypertension
CPT/HCPCS: 36415; 80053; 80061; 82306; 83036; 84443; 85014; 85018; 93005

== ENCOUNTER 2024-07-07 07:44 | Outpatient (CLI) | payer MEDICARE, SELFPAY ==
--- OUTSIDE RECORDS SUMMARY | 2024-07-07 07:52 | XMS_ITS | Clinical Summary ---
Author Organization [facility] Address [facility] [place] [address] Care Team Providers Care Box Gluer Name Role Phone Tonio Mobley MD Primary Care Provider Unavaila ble Social History Tobacco Use Types Packs/Day Years Used Date Smoking Tobacco: Never Assessed Comments Unknown Sex and Gender Information Value Date Recorded Sex Assigned at Not on file Legal Sex Female 7:33 PM CDT Gender Identity Not on file Sexual Orientation Not on file Last Filed Vital Signs Vital Sign Reading Time Taken Comments Blood Pressure 150/92 10/17/2015 8:21 AM CDT Pulse 109 10/17/2015 8:21 AM CDT Temperature - - Respiratory Rate - - Oxygen Saturation - - Inhaled Oxygen Concentration - - Weight 126.6 kg (279 lb) 10/17/2015 8:21 AM CDT Height 157.5 cm (5' 2 ) 10/17/2015 8:21 AM CDT Body Mass Index 51.03 10/17/2015 8:21 AM CDT Plan of Treatment Health Maintenance Due Date Last Done Comments Hepatitis C 1976 DTaP, Tdap and Td Vaccines ( 1 - Tdap) 1977 Mammogram Screening 1998 Pneumococcal Vaccine: 50+ Years (1 of 1 - PCV) 2008 Zoster Vaccines (1 of 2) 2008 Colorectal Cancer Screening Colonoscopy (10 Years) 10/09/2021 10/10/2011, 03/11/2008 Dexa Scan (General) 11/05/2023 COVID-19 Vaccine ( - 2023-2 5 season) 2023 RSV Immunization or 60+ Years (1 - 1-dose 75+ series) 2033 Meningococcal B Vaccine Aged Out No l onger eligible based on patient's age to complete this topic Meningococcal Vaccine Aged Out No nayeli sridhar eligible based on patient's age to complete this topic RSV Immunizations Under 20 Months Aged Out No longer eligible b ased on patient's age to complete this topic Procedures Procedure Name Priority Date/Time Associated Diagnosis Comments COLONOSCOPY Routine 10/10/2011 12:00 AM CDT from Last 3 Months or Most Recently Relevant to Health Maintenance Results * Colonoscopy (10/10/2011 12:00 AM CDT) 10/10/2011 10/10/2011 Narrative [facility] TO EPIC CONVERSION - 10/10/2011 12:00 AM CDT Documented hx of procedure Procedure Note Derian Aceves MD - 01/12/2018 Documented hx of procedure us Generic Conversion Md ACEVES GI PROCEDURE ORDERABLES Final Result [facility] TO [facility] CONVERSION from Last 3 Months or Most Recently Relevant to Health Maintenance Care Teams Box Gluer Relationship Specialty Start Date End Date Tonio Mobley MD PCP - General 10/17/15
[2024-07-07 09:59] LABS: Basophils Percent Auto 0.5 % (0.2-1.2); Eosinophils Absolute Auto 0.1 K/mm3 (0-0.3); Eosinophils Percent Auto 1.6 % (0-4.4); Hematocrit 41.5 % (37.0-47.0); Hemoglobin 13.6 g/dL (12.0-15.0); Immature Granulocyte Absolute 0.04 K/mm3 (0.00-0.031); Immature Granulocyte Percent A 0.5 % (0-0.5); Lymphocytes Absolute Auto 1.27 K/mm3 (0.9-3.2); Lymphocytes Percent Auto 16.6 % (18.3-44.2); Mean Corpuscular HGB Conc 32.8 g/dl (32-36); Mean Corpuscular Hemoglobin 29.3 pg (26-34); Mean Corpuscular Volume 89.4 fl (80-100); Mean Platelet Volume 8.7 fl (7.4-10.4); Monocytes Absolute Auto 0.6 K/mm3 (0.1-0.6); Monocytes Percent Auto 8.1 % (2.6-8.5); Neutrophils Absolute Auto 5.6 K/mm3 (1.3-6.7); Neutrophils Percent Auto 72.7 % (45.5-73.1); Platelet Count Result 307 k/mm3 (150-375); Red Blood Count 4.64 M/mm3 (4.2-5.4); Red Cell Distribution Width 13.2 % (11.5-14.5); White Blood Count 7.6 K/mm3 (4.5-10.0)
[2024-07-07 10:11] LABS: Urine Cotinine NEGATIVE
[2024-07-07 11:10] LABS: MRSA (PCR) NOT DETECTED (NOT DETECTE)
== END 2024-07-07 07:45 | disposition home or self-care (01) ==
LOC: ANHSURGERY 07:49
PROVIDERS: PCP Emergency Medicine; Visit Provider Orthopaedic Surgery
DX: M16.11 Unilateral primary osteoarthritis, right hip (principal); Z01.818 Encounter for other preprocedural examination
CPT/HCPCS: 80307; 85025; 87641

== ENCOUNTER 2024-07-28 01:14 | Day surgery (SDC) | payer MEDICARE, SELFPAY ==
--- NOTE | 2024-07-07 08:01 | PC.NURSE ---
Addendum entered by Sabrina Alba RN 07/07/24 10:47: REPORT CALLED TO DR PASTRANA'S OFFICE TO REPORT VERY POOR MOBILITY AND PAIN CONTROL. NEW SCRIPTS FOR CELEBREX AND TRAMADOL GIVEN TO PATIENT. ALL NSAIDS D/C'D. PHONED PATIENT TO INSTRUCT NEW MED REGIME, SHE RELAYS UNDERSTANDING. INSTR THAT SHE MAY TAKE TRAMADOL ON DOS IF NEEDED. SHE RELAYS UNDERSTANDING. Original Note: Report to the Outpatient Waiting Room, entrance under the green pavilion located off [facility], at time ___11:30am____ on date ___07/28/24____. Planned Procedure Time: ___1:30pm . Time changes happen often and if your time is changed the preop area will call you the afternoon before. - You and your visitor will be asked to self-screen and do not enter if you have any COVID symptoms. Please call surgeon if you need to reschedule. - A mask is optional within the hospital at this time. Patients may have clear liquids (water, carbonated beverages, clear teas, apple juice) until 3 hours prior to surgery with a maximum of 20 ounces. - No food from midnight until time of surgery and no smoking, or chewing tobacco (or any form of nicotine). No chewing gum, candy or mints. Take only the following medications with a SIP of water on the morning of surgery: ___LEVOTHYROXINE, METOPROLOL, VENLAFAXINE. DO NOT STOP ANY OF YOUR OTHER PRESCRIPTION MEDICATIONS PRIOR TO SURGERY EXCEPT THE FOLLOWING Hold all vitamins and supplements for 3 days per anesthesiologist.- LAST DOSE 07/24/24 Medications to discontinue per physician ___HOLD NAPROXEN, IBUPROFEN, MELOXICAM (NSAIDS) AND FISH OIL 7 DAYS PRE-OP PER DR PASTRANA. Date to take last dose 07/20/24 Please no make-up, nail iraqi, hairspray, perfume, deodorant, or body powder the day of surgery. No jewelry (including any body piercings) or valuables the day of surgery, leave them at home. Please take a shower or bath the night before, or the morning of, surgery with an antibacterial soap. Wear comfortable, loose fitting clothing. - Jewelry must be removed prior to entering the operating room. Rings and piercings that are not removed may be cut off. - The hospital will not accept responsibility for valuables. - Please leave all valuables, including medications, at home the day of surgery. If you are going home after surgery, a licensed concrete mixing truck driver must drive you home. - NO public transportation without another adult if you receive anesthesia. - We recommend that an adult stay with you for 24 hours following discharge. - We also recommend that you do not drive, make important decision, drink alcoholic beverages, or take any drugs that were not prescribed by your health care provider for at least 24 hours after your discharge time. Follow any additional instructions given to you from your surgeon. Telephone instructions given to ____PATIENT and asked if any additional questions and then verbalized understanding. Patient advised to call surgeon office or pre surgery nurse liaison [phone] if any additional questions.
[2024-07-07 08:29] VITALS: BP 104/59; PULSE 101; RESP 16; TEMP 36.2; O2SAT 99; BMI 39.3
[2024-07-28] VITALS (15 sets, daily range): BP systolic 118–157; BP diastolic 58–96; PULSE 85–105; RESP 12–20; TEMP 36.1–36.6; O2SAT 94–100; BMI 38.6
--- NOTE | ~2024-07-28 | XR_ITS ---
XR hip RT min 2V Ordering provider: Stewart Domingo MD History: . POST OP RIGHT PACO . Comparison: None. FINDINGS: BONES: No acute fracture or dislocation. HIP JOINT SPACES: Right hip arthroplasty. SACROILIAC JOINT SPACES/LUMBAR SPINE: The sacroiliac joint spaces are normal. Mild degenerative herndon es of the visualized lower lumbar spine. PUBIC SYMPHYSIS: Pubic symphysitis. SOFT TISSUES: Lucency adjacent to the proximal femurs suggestive of postoperative changes. IMPRESSION: No acute osseous abnormality pelvis. Right hip arthroplasty. Reviewed, dictated and finalized at location A.
--- NOTE | ~2024-07-28 | XR_ITS ---
XR hip RT 2V w AP pelvis 07/28/2024 09:26 Indication: Osteoarthritis of the right hip Procedure: 3 views of the right hip including AP pelvis Comparison: 12/30/2023 Findings: There is severe osteoarthritis of the hips which has progressed since prior examination. Th ere is been progression of subchondral collapse in the right femoral head, consistent with osteonecro sis. There are subchondral cyst in the acetabulum. Pelvic rings intact. Sacral foramen are symmetric. Impression: 1: Severe bilateral osteoarthritis of the hips which has progressed since prior study. There is evide nce for osteochondral necrosis of the femoral heads with subchondral collapse of the right femoral he ad. Reviewed, dictated and finalized at location B. Impression: 1: Severe bilateral osteoarthritis of the hips which has progressed since prior study. There is evidence for osteochondral necrosis of the femoral heads with subchondral collapse of the right femoral head.
--- OUTSIDE RECORDS SUMMARY | 2024-07-28 01:16 | XMS_ITS | Clinical Summary ---
Author Organization [facility] Address [facility] [place] [address] Care Team Providers Care Mold Mover Name Role Phone Tonio Mobley MD Primary [...] Recently Relevant to Health Maintenance Care Teams Mold Mover Relationship Specialty Start Date End Date Tonio Mobley MD PCP - General 10/17/15
--- OUTSIDE RECORDS SUMMARY | 2024-07-28 01:16 | XMS_ITS | Continuity of Care Document ---
Author Organization [facility] Address [address] [place] [address] [address] [place] [address] Phone Care Team Providers Care Tailing Machine Operator Name Role Phone Lillie PT, CMPT, Nik Unavailable Harriet vailable Procedures Procedure Date PT RE-EVALUATION THERAPEUTIC EXERCISES MANUAL THERAPY FUNC ACTIVITY HOT/COLD PACK ELECTRIC STIMULATION UNATT THERAPEUTIC EXERCISES MANUAL THERAPY FUNC ACTIVITY HOT/COLD PACK ELECTRIC STIMULATION UNATT THERAPEUTIC EXERCISES MANUAL THERAPY FUNC ACTIVITY HOT/COLD PACK ELECTRIC STIMULATION UNATT THERAPEUTIC EXERCISES MANUAL THERAPY FUNC ACTIVITY HOT/COLD PACK ELECTRIC STIMULATION UNATT THERAPEUTIC EXERCISES MANUAL THERAPY FUNC ACTIVITY HOT/COLD PACK ELECTRIC STIMULATION UNATT THERAPEUTIC EXERCISES MANUAL THERAPY FUNC ACTIVITY HOT/COLD PACK ELECTRIC STIMULATION UNATT THERAPEUTIC EXERCISES MANUAL THERAPY FUNC ACTIVITY HOT/COLD PACK ELECTRIC STIMULATION UNATT THERAPEUTIC EXERCISES MANUAL THERAPY FUNC ACTIVITY HOT/COLD PACK ELECTRIC STIMULATION UNATT PT RE-EVALUATION THERAPEUTIC EXERCISES MANUAL THERAPY FUNC ACTIVITY HOT/COLD PACK ELECTRIC STIMULATION UNATT THERAPEUTIC EXERCISES MANUAL THERAPY HOT/COLD PACK ELECTRIC STIMULATION UNATT PT EVALUATION THERAPEUTIC EXERCISES HOT/COLD PACK ELECTRIC STIMULATION UNATT PT RE-EVALUATION THERAPEUTIC EXERCISES MANUAL THERAPY FUNC ACTIVITY 15 MIN HOT/COLD PACK ELECTRIC STIMULATION UNATT THERAPEUTIC EXERCISES MANUAL THERAPY FUNC ACTIVITY 15 MIN HOT/COLD PACK ELECTRIC STIMULATION UNATT THERAPEUTIC EXERCISES MANUAL THERAPY FUNC ACTIVITY 15 MIN HOT/COLD PACK ELECTRIC STIMULATION UNATT THERAPEUTIC EXERCISES MANUAL THERAPY FUNC ACTIVITY 15 MIN HOT/COLD PACK ELECTRIC STIMULATION UNATT THERAPEUTIC EXERCISES MANUAL THERAPY FUNC ACTIVITY 15 MIN ULTRASOUND THERAPY HOT/COLD PACK ELECTRIC STIMULATION UNATT THERAPEUTIC EXERCISES MANUAL THERAPY FUNC ACTIVITY 15 MIN ULTRASOUND THERAPY HOT/COLD PACK ELECTRIC STIMULATION UNATT THERAPEUTIC EXERCISES MANUAL THERAPY FUNC ACTIVITY 15 MIN ULTRASOUND THERAPY HOT/COLD PACK ELECTRIC STIMULATION UNATT THERAPEUTIC EXERCISES MANUAL THERAPY FUNC ACTIVITY 15 MIN ULTRASOUND THERAPY HOT/COLD PACK ELECTRIC STIMULATION UNATT THERAPEUTIC EXERCISES MANUAL THERAPY FUNC ACTIVITY 15 MIN ULTRASOUND THERAPY HOT/COLD PACK THERAPEUTIC EXERCISES MANUAL THERAPY FUNC ACTIVITY 15 MIN ULTRASOUND THERAPY HOT/COLD PACK ELECTRIC STIMULATION UNATT PT EVALUATION THERAPEUTIC EXERCISES MANUAL THERAPY HOT/COLD PACK ELECTRIC STIMULATION UNATT Advance Directives Directive Yes / No Effective Date File Name No Information Encounters Encounter Description Practice Location Reason(s) For Visit Diagnoses Date Provider Providers Copied on Encounter [facility] [address], [id number], tel:[phone] [place] No Information Alejandro Zaragoza. [address] [facility], [address], [place], [place], [facility], . tel:[phone] [facility] [address] [place] [address], [place], [id number], tel:[phone] [place] No Information Alejandro Zaragoza. [address] [facility], [address], [place], [place], [facility], . tel:[phone], [place], [id number], tel:[phone] [place] No Information Alejandro Zaragoza. [address] [facility], [address], [place], [place], [facility], [place]. tel:[phone] [address], [place], [id number], tel:[phone] [place] No Information Alejandro Zaragoza. [address] [facility], [address], [place], [place], [facility], [place]. tel:[phone], [place], [place], [id number], tel:[phone] [place] No Information Alejandro Zaragoza. [address] [place] [address], [address], [place], [place], [facility], . tel:[phone], [place], [place], [id number], tel:[phone] [place] No Information Alejandro Moctezumala. [address] [place] [address], [address], [place] [address], . tel:[phone], [place], [place], [id number], tel:[phone] [place] No Information Alejandro Zaragoza. [address] [place] [address], [address], [place], [place], [facility], . tel:[phone], [place], [place], [id number], tel:[phone] [place] No Information Reina Whittaker. [address] [place] [address], [address], [place] [address], . tel:[phone], [place], [place], [id number], tel:[phone] [place] No Information Alejandro Zaragoza. [address] [place] [address], [address], [place] [address], . tel:[phone], [place], [place], [id number], tel:[phone] [place] No Information Alejandro Zaragoza. [address] [place] [address], [address], [place], [facility], . tel:[phone], [id number], tel:[phone] [place] No Information Alejandro Zaragoza. [address] [facility], [facility] [address], [place], [facility], . tel:[phone], [id number], tel:[phone] [place] No Information Alejandro Zaragoza. [address] [facility], [facility] [address], [place], [facility], . tel:[phone] Referring Provider: Brayan Gonzalez [address] [place] [address], [facility]. tel:[phone], [id number], tel:[phone] [place] No Information Alejandro Zaragoza. [address] [facility], [address], [facility], . tel:[phone] Referring Provider: Brayan Gonzalez [address] [place] [address], [facility]. tel:[phone], [id number], tel:[phone] [place] No Information Alejandro Zaragoza. [address] [facility], [address], [facility], . tel:[phone] Referring Provider: Brayan Gonzalez [address] [place] [address], [facility]. tel:[phone], [id number], tel:[phone] [place] No Information Alejandro Zaragoza. [address] [facility], [address], [place], [facility], . tel:[phone] Referring Provider: Shirley [place], [place], [facility]. tel:[phone], [id number], [place] tel:[phone] [place] No Information Alejandro Zaragoza. [address] [facility], [address], [place], [facility], [place]. tel:[phone] Referring Provider: Shirley Sy[place], [place], [facility]. tel:[phone], [id number], [place] tel:[phone] [place] No Information Alejandro Zaragoza. [address] [place] [address], [address] [place] [address], [facility], [place]. tel:[phone] Referring Provider: Shirley Syed [place], [place], [facility]. tel:[phone], [id number], [place] tel:[phone] [place] No Information Alejandro Zaragoza. [address] [facility], [address], [place], [facility], [place]. tel:[phone] Referring Provider: Shirley Sy[place], [place], [facility]. tel:[phone] [place] [address], [id number], [place] tel:[phone] [place] No Information Alejandro Zaragoza. [address] [place] [address], [address] [address], [place]. tel:[phone] Referring Provider: Brayan Gonzalez [address] [place], [address]. tel:[phone], [id number], tel:[phone] [place] No Information Alejandro Zaragoza. [address] [facility], [address], [facility], . tel:[phone] Referring Provider: [place], [address]. tel:[phone], [id number], tel:[phone] [place] No Information Alejandro Zaragoza. [address] [place] [address], [address], [facility], . tel:[phone] Referring Provider: [place], [address]. tel:[phone], [id number], tel:[phone] [place] Pain in joint involving lower leg Alejandro Zaragoza. [address] [place] [address], [address], [facility], . tel:[phone] Referring Provider: [place], [address]. tel:[phone] Family History Family Member Type Diagnosis Age At Onset No Information Payers Payer name Insurance type Covered green party ID Authoriza tion(s) No Information Social History Type Description Quantity Date Captured Comments Sex Female Smoking Status No Information Chief Complaint And Reason For Visit No Information Reason For Referral Reason For Referral No Information History Of Present Illness Encounter Date Complaint History Of Prese nt Illness No Information Functional Status Date Functional Assessmen t No Information Instructions Date Instruction Additional Infor mation No Information Assessments Type Assessment Date No Information Patient Care Teams Name Effective Dates (start - stop) Status Members No Information
--- OUTSIDE RECORDS SUMMARY | 2024-07-28 01:16 | XMS_ITS | Continuity of Care Document ---
Author Organization [facility] Address [address] [place] [address] Phone Care Team Providers Care [facility] Name Role Phone Madyson Ovalles MD Unavailable Unavailabl e Allergies, Adverse Reactions, Alerts Substance Reaction Status Criticality Penicillins Rash Active No Information Medications Medication Instructions Dosage Effective Dates (start - stop) Status Comments Fish Oil 300 mg-1,000 mg capsule take 2 capsules by mouth once daily - Active Vitamin D3 5,000 unit tablet take 1 tablet by mouth once daily - Active calcium carbonate-vitamin D3 600 mg (1,500 mg)-800 unit tablet take 1 tablet by mouth once daily - Active Multiple Vitamin, Womens tablet take 1 tablet by mouth once daily - Active atorvastatin 10 mg tablet take 1 tablet by oral route every day 10 MG - Active naproxen 500 mg tablet take 1 tablet by oral route 2 times every day with food 500 MG - Active Advance Directives Directive Yes / No Effective Date File Name No Information Encounters Encounter Description Practice Location Reason(s) For Visit Diagnoses Date Provider Providers Copied on Encounter [facility], [address], [place], [place], [id number] , [place] tel:[phone] [place] No Information May- [address]. [address] [place], [place], [id number]. tel:[phone] [facility], [address], [place], [place], [id number] , [place] tel:[phone] [place] Diabetes Mellitus Type 2, UncomplicatedOther and unspecified hyperlipidemiaHTNThe rapeutic Drug Monitoring 4 Ovalles Madyson. [address] [place], [place], [id number]. tel:[phone] [facility], [address], [place], [place], [id number] , tel: [phone] He[place] History of fall/At Risk For FallingScreening for unspecified conditionRoutine medical examHyperlipidemiaHT NDepressionDiabetes Mellitus Type 2, UncomplicatedPersona l history of colonic polypsDegeneration of intervertebral disc, site unspecifiedRoutine Medical ExamOsteoarthrosis, generalized, involving unspecified site 0 [address] Ovalles Madyson. [address] [place], [place], [id number]. tel:[phone] Referring Provider: Madyson Ovalles, [address] [place], [address] . tel:[phone] Family History Family Member Type Diagnosis Age At Onset Problem (finding) Family history of Diabetes mellitus Maternal uncle #1 Problem (finding) Father Problem (finding) hypertension Father Problem (finding) cancer, brain (Cause Of ) Mother Problem (finding) diabetes melli tus in first degree relative Maternal uncle #1 Problem (finding) Maternal uncle #2 Problem (finding) Mother Problem (finding) Obesity Brother Problem (finding) Obesity Brother Problem (finding) raised blood lipids Maternal uncle #2 Problem (finding) cancer of colon (C ause Of ) Father Problem (finding) one brother Problem (finding) alcoholism one sister Problem (finding) alcoholism Mother Problem (finding) Cancer -breast /leukemia (Cause Of ) Maternal uncle #2 Problem (finding) Maternal uncle #1 Problem (finding) malignant ne oplasm of lung (Cause Of ) Father Problem (finding) raised blood lipids Maternal grandmother Problem (finding) malignant neopl asm of uterus Brother Problem (finding) hypertension Mother Problem (finding) Payers Payer name Insurance type Covered democrat ID Authoriza tipatel(s) P OPEN ACCESS HMO PPO POS [place] [id number] Social History Type Description Quantity Date Captured Comments Alcohol Use Details Unknown Caffeine Use Details Unknown Tobacco Use Status No Information Smoking Status No Information Sex Female Chief Complaint And Reason For Visit No [...]
--- NOTE | 2024-07-28 07:17 | WPDHPUPDATE1 ---
History and Physical Update Update Date/Time: 07/28/24 07:17 History and Physical has been reviewed, including an updated exam of the patient. There are NO changes in the patient's condition. Risks, benefits, and alternatives have been discussed and questions answered. Patient agrees to proceed with procedure.
--- OUTSIDE RECORDS SUMMARY | 2024-07-28 09:16 | XMS_ITS | Clinical Summary ---
Author Organization [facility] Address [facility] [place] [address] Care Team Providers Care Shift Boss Name Role Phone Tonio Mobley MD Primary [...] Recently Relevant to Health Maintenance Care Teams Shift Boss Relationship Specialty Start Date End Date Tonio Mobley MD PCP - General 10/17/15
[2024-07-28] MEDS: LACTATED RINGERS 1,000 ML 30 ML IV CONT ×2 (11:15→14:57)
[2024-07-28 11:22] LABS: Glucose Point of Care 97 mg/dl (65-105)
[2024-07-28] MEDS: TRANEXAMIC ACID 1,000MG/ISO100 1,000 MG/100 ML BAG 200 MG IVPB (11:23)
[2024-07-28] MEDS: ACETAMINOPHEN 500 MG TABLET 1000 MG PO (11:23)
--- NOTE | 2024-07-28 11:57 | WPDANESEPPF ---
Anes - Initial Pre Proc Eval Procedure: Operation Date: 07/28/24 13:30 Proposed Procedures p Right Total Hip Arthroplasty - Stewart Domingo MD Date/Time: 07/28/24 11:57 Surgeon: Stewart Domingo MD Pre Op Diagnosis: primary OA right hip Patient Data Age: 63 Gender: F Height: 1.53 m Weight: 92.2 kg Last Vital Signs Temp 36.2 C L 07/07/24 08:29 Pulse 101 H 07/07/24 08:29 Resp 16 07/07/24 08:29 BP 104/59 L 07/07/24 08:29 Pulse Ox 99 07/07/24 08:29 O2 Del Method Room Air 07/07/24 08:29 Allergies Allergy/AdvReac Type Severity Reaction Status Date / Time Penicillins Allergy Unknown Rash Verified 07/17/24 08:22 Home Medications Medication Instructions Recorded Confirmed Type multivitamin 1 tablet PO .COMPLEX 04/19/19 07/17/24 History omega 5-rdq-wrl-fish oil 300 2 cap PO BID 04/20/19 07/17/24 History mg-1,000 mg capsule (Fish Oil) blood sugar diagnostic (Accu-Chek #100 ea 05/15/21 07/17/24 Rx Patricia Plus test strips) metoprolol tartrate 25 mg tablet See Rx Instructions .Route 08/12/23 07/17/24 Rx .COMPLEX #180 tabs fluticasone propionate 50 See Rx Instructions .Route 09/02/23 07/17/24 Rx mcg/actuation nasal .COMPLEX #32 grams spray,suspension loratadine 10 mg tablet 10 mg PO DAILY 09/09/23 07/17/24 History venlafaxine 150 mg See Rx Instructions .Route 11/18/23 07/17/24 Rx capsule,extended release 24 hr .COMPLEX #90 caps lisinopril 20 mg tablet See Rx Instructions .Route 01/03/24 07/17/24 Rx .COMPLEX #90 tabs metformin 1,000 mg tablet See Rx Instructions .Route 01/16/24 07/17/24 Rx .COMPLEX #180 tabs cyclobenzaprine 10 mg tablet 10 mg PO TID PRN Muscle Spasms #90 01/23/24 07/17/24 Rx tabs atorvastatin 20 mg tablet See Rx Instructions .Route 02/07/24 07/17/24 Rx .COMPLEX #90 tabs levothyroxine 75 mcg tablet See Rx Instructions .Route 02/07/24 07/17/24 Rx .COMPLEX #90 tabs semaglutide 2 mg/dose (8 mg/3 mL) 2 mg (0.75 mL) subcut WEEKLY #3 mL 04/06/24 07/17/24 Rx subcutaneous pen injector (Ozempic) ascorbic acid (vitamin C) 1,000 mg 1 g PO DAILY 07/07/24 07/17/24 History capsule celecoxib 200 mg capsule (Celebrex) 200 mg PO DAILY #90 caps 07/07/24 07/17/24 Rx cholecalciferol (vitamin D3) 50 2,000 unit PO DAILY 07/07/24 07/17/24 History mcg (2,000 unit) capsule inulin-sorbitol 2 gram chewable 4 tablet PO DAILY 07/07/24 07/17/24 History tablet (Fiber Supplement (inulin)) vitamin B complex 1 cap PO DAILY 07/07/24 07/17/24 History tramadol 50 mg tablet 50 mg PO Q6H PRN pain 7 days #30 07/22/24 Rx tabs aspirin 81 mg tablet,delayed 81 mg PO BID 14 days #28 tabs 07/28/24 Rx release oxycodone-acetaminophen 5 mg-325 1 - 2 tablet PO Q4-6H PRN pain 7 07/28/24 Rx mg tablet days #30 tabs prednisone 5 mg tablet 5 mg PO DAILY 3 weeks #21 tabs 07/28/24 Rx Laboratory Tests 07/28/24 07/28/24 10:31 11:19 POC Capillary Glucose 97 mg/dl (65-105) Blood Type Pending Antibody Screen Pending Patient hx anesthesia problems: none Family hx anesthesia problems: none Results Review: All pre-operative results and documents have been reviewed as part of the pre-operative evaluation. [facility] Past Medical History Medical History Acute recurrent maxillary sinusitis Sinusitis chronic, frontal Lumbar stenosis with neurogenic claudication Cervical spondylolysis Acute sinusitis Acute otitis externa of left ear Body mass index (BMI) of 50-59.9 in adult (02/18/17) Bronchitis Cervical spine pain Elevated liver enzymes Rhinosinusitis Grieving Diabetes mellitus, type II Essential (primary) hypertension Mild episode of recurrent major depressive disorder Mixed hyperlipidemia Morbid (severe) obesity due to excess calories Osteoarthritis of lower back Other chronic pain Post-nasal drip Restless leg syndrome, controlled Vitamin D deficiency Family History Family History Father Family history of malignant neoplasm of brain, Onset Age: 68 Mother Family history of malignant neoplasm of breast in first degree relative, Onset Age: 64 Sibling Alcoholism Cerebrovascular accident Thyroid disorder Father Cancer Hypertension Mother Cancer Diabetes mellitus Depression Grandparent Diabetes mellitus Other Lung cancer Social History Social History Social History: Omaira is very confident filling out medical forms. In the last 12 months she has not received assistance from an organization or program. Smoking packs per day: 1 Smoking cigarettes per day: 20.0 Years smoked: 25 Smoking pack-years: 25.00 Smoking status: Former smoker Second hand tobacco smoke exposure: No Alcohol intake: former Alcohol use details: QUIT 2007 Substance use: never Substance use type: does not use Do You Feel Safe in your Home?: Yes Lack of Transportation: No Lack of Food: Never True Current Housing: I Have Housing Concerned About Future Housing: No Difficulty Paying Gas/Electric Bills: No Difficulty Paying for Meds: No Currently Unemployed: No Education: High School Diploma/GED Difficulty w/ Childcare or Family Care: No Living arrangements: with family Gender identity (if verbalized by the patient): Female Spiritual care concerns: No Agree to blood products: Yes Anes - Eval Final PreProcedure Day of Procedure 07/28/24 11:57 Patient weight: obese Heart: regular rate and rhythm Lungs: decreased breath sounds Airway: Mallampati scale class II Neurological: alert and oriented Last oral intake: >/= 8 hours ASA classification: III Emergent: no Anesthetic plan: proceed Anesthesia type and monitoring: general ETT and standard monitoring Results Review: All pre-operative results and documents have been reviewed as part of the pre-operative evaluation. Informed Consent: The patient's anesthetic plan and its attendant risks and benefits were discussed with the patient/family/POA. Questions were solicited and answers provided to the satisfaction of the patient/family/POA.
[2024-07-28] MEDS: ceFAZolin 2 GM/D5W 50 ML 2 GM/50 ML BAG IVPB ×2 (12:13→20:53)
[2024-07-28] MEDS: SODIUM CHLORIDE 0.9% IV 37.7 ML, MORPHINE SULFATE INJ (*CRX) 2 MG, ROPivacaine HCL 1% 2... INFILTRATE (12:54)
[2024-07-28] MEDS: TRANEXAMIC ACID 1,000 MG/10 ML AMPUL 1000 MG IV PUSH (13:45)
[2024-07-28 14:24] LABS: Glucose Point of Care 97 mg/dl (65-105)
[2024-07-28] MEDS: fentaNYL CITRATE INJ (*CRX) 100 MCG/2 ML VIAL 25 MCG IV PUSH ×8 (14:27→15:20)
--- NOTE | 2024-07-28 16:35 | P.OP_ITS ---
Procedure Note - Detailed Date of Procedure 07/28/24 Pre-op Diagnosis Right hip degenerative arthritis. Post-op Diagnosis Same Procedure Performed Right Total Hip Arthroplasty Surgeon Stewart Domingo MD Anesthesia General Findings Very stiff, soft tissue contracture consistent with being very sedentary. Sign ificant acetabular cyst were bone grafted with reamings. Bone quality was good. Description of Procedure The patient was given preoperative antibiotics. A general anesthetic was administered. The patient was carefully placed in the lateral decubitus position on the PEG board. The shoulders and hips were carefully positioned for component and leg length positioning reference. The hip was prepped and draped in the usual sterile fashion. A longitudinal incision was created over the posterior aspect of the greater trochanter. Careful dissection was brought down through the deep fascia with electrocautery. A minimally invasive optimized posterior approach to the hip was performed. The short external rotators and capsule were taken down in an L-shaped capsulotomy. The tissue was tagged for later repair using number 2 high strength suture. The femoral neck was measured and taken in situ. The femoral head was removed. The acetabulum was carefully exposed. The inferior capsule was released. The labrum was resected. The acetabulum was sequentially reamed to the intended cup size. The cup was impacted into position with excellent press-fit. Typical anatomic landmarks, including the bony contact points as well as the inferior transverse acetabular ligament were used to confirm cup positioning with preoperative templating. At tention was turned to the femur, which was carefully exposed. The hip was reamed and then broached sequentially. Excellent press-fit was obtained with the broach. The hip was trialed. Measurements were utilized, including the lesser trochanter as well as the center of the femoral head and the tip of the trochanter, and excellent assessment of the offset and leg lengths were confirmed. The real component was impacted into position. Trialing confirmed appropriate leg length and offset with soft tissue balancing as well apparent feel of the leg, both at the knee and the heel. Soft tissues were assessed using the the iliotibial band. Reduction of the posterior capsule and external rotators were also used as a secondary assessment. The hip was copiously irrigated with pulsatile lavage periodically throughout the procedure. The real components were then assembled and reduced. The hip was stable throughout typical maneuvers, including extension, external rotation to 70 degrees, the po sition of sleep as well as flexion to 90 degrees with internal rotation past 35 degrees. The shake test confirmed stability without impingement. Osteophytes were removed as necessary. The short external rotators and capsule were repaired back to the posterior trochanter through drill holes. The deep fascia was repaired with running number 2 barbed suture, followed by 2-0 Stratafix suture and 3-0 Stratafix suture in the dermis. Steri-Strips were placed on the skin, followed by a sterile occlusive dressing. There were no complications. Meticulous hemostasis was maintained with the AquaMantys device. The patient was brought to the recovery room in stable condition. There were no complications. Implants The [place] Insignia hip stem, high offset size 1 , was utilized with excellent press-fit. The 46 mm Trident II acetabular component was impacted with excellent press-fit stability. Standard polyethylene liner the +0, 32 mm Biolox ceramic femoral head was utilized. Estimated Blood Loss 200 Drains No Packing No Pathology None sent Complications No immediate complications Condition Stable Disposition PACU [facility] Billing Surgery - Charge Forward: Surgery Billing
[2024-07-28] MEDS: metFORMIN HCL 500 MG TABLET 1000 MG BY MOUTH (16:53)
[2024-07-28] MEDS: ACETAMINOPHEN 325 MG TABLET 650 MG PO ×2 (16:53→19:03)
[2024-07-28] MEDS: SENNA/DOCUSATE SODIUM TABLET 2 TAB PO (16:53)
[2024-07-28 17:07] LABS: Glucose Point of Care 125 mg/dl (65-105)
[2024-07-28 17:56] LABS: Basophils Percent Auto 0.3 % (0.2-1.2); Eosinophils Percent Auto 0.1 % (0-4.4); Hematocrit 34.8 % (37.0-47.0); Hemoglobin 11.5 g/dL (12.0-15.0); Immature Granulocyte Absolute 0.08 K/mm3 (0.00-0.031); Immature Granulocyte Percent A 0.6 % (0-0.5); Lymphocytes Absolute Auto 0.81 K/mm3 (0.9-3.2); Lymphocytes Percent Auto 5.6 % (18.3-44.2); Mean Corpuscular Hemoglobin 29.8 pg (26-34); Mean Corpuscular Volume 90.2 fl (80-100); Mean Platelet Volume 8.6 fl (7.4-10.4); Monocytes Absolute Auto 0.9 K/mm3 (0.1-0.6); Monocytes Percent Auto 5.9 % (2.6-8.5); Neutrophils Absolute Auto 12.7 K/mm3 (1.3-6.7); Neutrophils Percent Auto 87.5 % (45.5-73.1); Platelet Count Result 266 k/mm3 (150-375); Red Blood Count 3.86 M/mm3 (4.2-5.4); White Blood Count 14.5 K/mm3 (4.5-10.0)
[2024-07-28 18:05] LABS: Anion Gap 8 mmol/L (4-12); Blood Urea Nitrogen 16 mg/dL (7-17); Calcium 8.4 mg/dL (8.4-10.2); Carbon Dioxide 24 mmol/L (22-30); Chloride 100 mmol/L (98-107); Estimated CRCL calculation 100 ml/min; Estimated Glomerular Filt Rate > 60; Glucose 132 mg/dL (65-110); Potassium 4.3 mmol/L (3.4-5.0); Sodium 132 mmol/L (137-145)
[2024-07-28] MEDS: oxyCODONE/ACETAMINOPHEN (*CRX) 5-325 MG TABLET 1 TABLET PO (19:03)
[2024-07-28 20:12] LABS: Glucose Point of Care 140 mg/dl (65-105)
[2024-07-28] MEDS: ASPIRIN 81 MG ENTERIC TABLET PO (20:53)
[2024-07-28] MEDS: METOPROLOL TARTRATE 25 MG TABLET BY MOUTH (20:54)
[2024-07-28] MEDS: FAMOTIDINE 20 MG TABLET PO (20:54)
[2024-07-28] MEDS: ATORVASTATIN 20 MG TABLET BY MOUTH (20:54)
[2024-07-29 00:10] VITALS: BP 111/56; PULSE 82; RESP 17; TEMP 36.7; O2SAT 99
[2024-07-29] MEDS: oxyCODONE/ACETAMINOPHEN (*CRX) 5-325 MG TABLET 1 TABLET PO ×2 (00:22→09:13)
[2024-07-29] MEDS: ACETAMINOPHEN 325 MG TABLET 650 MG PO ×3 (00:29→12:03)
[2024-07-29] MEDS: BENZOCAINE/MENTHOL (*BKC) 18 EA LOZENGE 1 LOZENGE PO (00:29)
[2024-07-29] MEDS: ceFAZolin 2 GM/D5W 50 ML 2 GM/50 ML BAG IVPB ×2 (03:55→12:04)
[2024-07-29 04:15] VITALS: BP 102/56; PULSE 88; RESP 17; TEMP 36.1; O2SAT 97
[2024-07-29] MEDS: LEVOTHYROXINE SODIUM 75 MCG TABLET BY MOUTH (06:13)
[2024-07-29 06:29] LABS: Basophils Percent Auto 0.4 % (0.2-1.2); Eosinophils Absolute Auto 0.1 K/mm3 (0-0.3); Eosinophils Percent Auto 1.3 % (0-4.4); Hematocrit 32.8 % (37.0-47.0); Hemoglobin 10.9 g/dL (12.0-15.0); Immature Granulocyte Absolute 0.04 K/mm3 (0.00-0.031); Immature Granulocyte Percent A 0.5 % (0-0.5); Lymphocytes Absolute Auto 0.86 K/mm3 (0.9-3.2); Lymphocytes Percent Auto 10.2 % (18.3-44.2); Mean Corpuscular HGB Conc 33.2 g/dl (32-36); Mean Corpuscular Hemoglobin 29.5 pg (26-34); Mean Corpuscular Volume 88.6 fl (80-100); Mean Platelet Volume 8.3 fl (7.4-10.4); Monocytes Absolute Auto 0.9 K/mm3 (0.1-0.6); Monocytes Percent Auto 10.4 % (2.6-8.5); Neutrophils Absolute Auto 6.5 K/mm3 (1.3-6.7); Neutrophils Percent Auto 77.2 % (45.5-73.1); Platelet Count Result 251 k/mm3 (150-375); Red Cell Distribution Width 12.9 % (11.5-14.5); White Blood Count 8.4 K/mm3 (4.5-10.0)
[2024-07-29 06:54] LABS: Anion Gap 7 mmol/L (4-12); Blood Urea Nitrogen 18 mg/dL (7-17); Calcium 8.5 mg/dL (8.4-10.2); Carbon Dioxide 24 mmol/L (22-30); Chloride 100 mmol/L (98-107); Estimated CRCL calculation 94 ml/min; Estimated Glomerular Filt Rate > 60; Glucose 109 mg/dL (65-110); Potassium 4.2 mmol/L (3.4-5.0); Sodium 131 mmol/L (137-145)
--- NOTE | 2024-07-29 07:50 | PM.PNORT ---
Subjective Subjective Date/Time Seen: 07/29/24 07:50 Objective Data Vital Signs Vital Signs: Vital Signs - 24 hr 07/28/24 10:00 07/28/24 14:16 07/28/24 14:30 Temperature 97.7 F 97.2 F L Pulse Rate 86 98 93 Respiratory Rate 18 16 12 Blood Pressure 129/65 124/96 H 157/70 H Pulse Oximetry 100 100 99 Oxygen Delivery Room Air Simple Face Mask Room Air Oxygen Flow Rate 8 07/28/24 14:45 07/28/24 14:50 07/28/24 15:00 Temperature Pulse Rate 98 85 Respiratory Rate 12 12 Blood Pressure 143/60 H 151/63 H Pulse Oximetry 96 95 100 Oxygen Delivery Room Air Room Air Nasal Cannula Oxygen Flow Rate 2 07/28/24 15:15 07/28/24 15:30 07/28/24 15:38 Temperature Pulse Rate 85 90 Respiratory Rate 12 14 Blood Pressure 147/66 H 148/72 H Pulse Oximetry 100 100 99 Oxygen Delivery Nasal Cannula Nasal Cannula Room Air Oxygen Flow Rate 2 2 07/28/24 16:00 07/28/24 16:15 07/28/24 16:45 Temperature 97 F L 97 F L 97 F L Pulse Rate 91 91 105 H Respiratory Rate 18 18 20 Blood Pressure 150/75 H 142/83 H 142/66 H Pulse Oximetry 94 100 98 Oxygen Delivery Oxygen Flow Rate 07/28/24 17:45 07/28/24 20:00 07/28/24 20:04 Temperature 97.4 F L 97.9 F Pulse Rate 105 H 96 Respiratory Rate 18 16 Blood Pressure 126/58 L 118/60 Pulse Oximetry 96 99 Oxygen Delivery Room Air Oxygen Flow Rate 07/28/24 20:54 07/29/24 00:10 07/29/24 04:15 Temperature 98.0 F 96.9 F L Pulse Rate 96 82 88 Respiratory Rate 17 17 Blood Pressure 111/56 L 102/56 L Pulse Oximetry 99 97 Oxygen Delivery Oxygen Flow Rate Intake/Output Intake/Output: Intake & Output 07/26/24 07/27/24 07/28/24 07/29/24 23:59 23:59 23:59 23:59 Intake Total 700 Balance 700 Meds/Results Medications: Active Medications Generic Name Dose Route Start Last Admin Trade Name Freq PRN Reason Stop Dose Admin Acetaminophen 650 mg 07/28/24 15:39 07/29/24 06:13 Acetaminophen 325 Mg Tablet PO 650 mg Q6HR SATYA Administration Aspirin 81 mg 07/28/24 21:00 07/28/24 20:53 Aspirin 81 Mg Enteric Tablet PO 81 mg Q12HR SATYA Administration Atorvastatin Calcium 20 mg 07/28/24 21:00 07/28/24 20:54 Atorvastatin 20 Mg Tablet BY MOUTH 20 mg HS SATYA Administration Benzocaine 1 lozenge 07/28/24 21:30 07/29/24 00:29 Benzocaine/Menthol (*Bkc) 18 Ea Lozenge PO 1 lozenge Q4HR PRN Administration Sore Throat Celecoxib 200 mg 07/29/24 09:00 Celecoxib 200 Mg Capsule PO DAILY SATYA Cyclobenzaprine HCl 10 mg 07/28/24 15:39 Cyclobenzaprine Hcl 10 Mg Tablet PO Q8H PRN Muscle Spasm Dextrose 12.5 gm 07/28/24 15:39 Dextrose 50% 25 Gm/50 Ml Syringe IV PUSH PRN PRN Hypoglycemia Protocol Diphenhydramine HCl 25 mg 07/28/24 15:39 Diphenhydramine Hcl Inj 50 Mg/Ml Vial IV PUSH Q6H PRN Itching Famotidine 20 mg 07/28/24 21:00 07/28/24 20:54 Famotidine 20 Mg Tablet PO 20 mg Q12HR SATYA Administration Glucagon 1 mg 07/28/24 15:39 Glucagon For Inj 1 Mg Vial IM PRN PRN Hypoglycemia Protocol Glucose 15 gm 07/28/24 15:39 Glucose Oral Gel 15 Gm Of Glucse In 37.5 Gm Tube PO PRN PRN Hypoglycemia Protocol Hydromorphone HCl 1 mg 07/28/24 15:47 Hydromorphone Hcl Inj (*Crx) 2 Mg/Ml Vial IV PUSH Q2H PRN Breakthrough Pain Rated 7-10 or NPO Hydromorphone HCl 0.5 mg 07/28/24 15:48 Hydromorphone Hcl Inj (*Crx) 2 Mg/Ml Vial IV PUSH Q2H PRN Breakthrough Pain Rated 4-6 or NPO Sodium Chloride 1,000 mls @ 125 mls/hr 07/28/24 15:39 07/28/24 16:54 Normal Saline Iv IV CONT Not Given .Q8H SATYA Cefazolin Sodium 2 gm in 50 mls @ 100 mls/hr 07/28/24 20:00 07/29/24 03:55 Ancef 2 Gm/D5w 50 Ml IVPB 07/29/24 12:29 100 mls/hr Q8H SATYA Administration Dextrose 1,000 mls @ 100 mls/hr 07/28/24 15:39 Dextrose 5% 1,000 Ml IVPB PRN PRN Hypoglycemia Protocol Levothyroxine Sodium 75 mcg 07/29/24 06:30 07/29/24 06:13 Levothyroxine Sodium 75 Mcg Tablet BY MOUTH 75 mcg DAILY@0630 SATYA Administration Lisinopril 20 mg 07/29/24 09:00 Lisinopril 20 Mg Tablet BY MOUTH DAILY [facility] Loratadine 10 mg 07/29/24 09:00 Loratadine 10 Mg Tablet PO DAILY [facility] Metformin HCl 1,000 mg 07/28/24 17:00 07/28/24 16:53 Metformin Hcl 500 Mg Tablet BY MOUTH 1,000 mg BID SATYA Administration Metoprolol Tartrate 25 mg 07/28/24 21:00 07/28/24 20:54 Metoprolol Tartrate 25 Mg Tablet BY MOUTH 25 mg Q12HR SATYA Administration Miscellaneous Information 0 each 07/28/24 00:01 Semaglutide Nonform Can Pt Bring From Home Or Hold While Here? XX 08/27/24 00:00 CLARIFY [facility] Naloxone HCl 0.1 mg 07/28/24 15:39 Naloxone Hcl 0.4 Mg/Ml Vial IV PUSH Q2M PRN Opiate Reversal Non-Formulary Medication 2 mg 08/04/24 09:00 Semaglutide [Ozempic] SUB-Q 09/03/24 08:59 WEEKLY [facility] Ondansetron HCl 4 mg 07/28/24 15:39 Ondansetron Inj 4 Mg/2 Ml Vial IV PUSH Q4H PRN Nausea And Vomiting Oxycodone/Acetaminophen 1 tablet 07/28/24 15:39 07/29/24 00:22 Oxycodone/Acetaminophen (*Crx) 5-325 Mg Tablet PO 1 tablet Q4H PRN Administration Pain Rated 4-6 Oxycodone/Acetaminophen 1 tab 07/28/24 15:39 Oxycodone/Acetaminophen (*Crx) 10-325 Mg Tablet PO Q6H PRN Pain Rated 7-10 Polyethylene Glycol 17 gm 07/29/24 09:00 Polyethylene Glycol 3350 17 [facility] [place]/Docusate Sodium 2 tab 07/28/24 17:00 07/28/24 16:53 Senna/Docusate Sodium Tablet PO 2 tab BID [facility] Administration Tramadol HCl 50 mg 07/28/24 15:39 Tramadol Hcl (*Crx) 50 Mg Tablet PO Q4H PRN Pain Rated 1-3 Venlafaxine HCl 150 mg 07/29/24 09:00 Venlafaxine Hcl Xr 75 Mg Cap.Er.24h BY MOUTH [facility] Radiology Results: ITS Impressions Hip/Pelvis X-Ray 07/28/24 09:47 Impression: 1: Severe bilateral osteoarthritis of the hips which has progressed since prior study. There is evidence for osteochondral necrosis of the femoral heads with subchondral collapse of the right femoral head. Hip X-Ray 07/28/24 15:38 IMPRESSION: No acute osseous abnormality pelvis. Right hip arthroplasty. Labs Labs: Laboratory Results - last 24 hr 07/28/24 07/28/24 07/28/24 10:31 11:19 14:22 WBC RBC Hgb Hct MCV MCH MCHC RDW Plt Count MPV Immature Gran % (Auto) Neut % (Auto) Lymph % (Auto) [place] % (Auto) Eos % (Auto) Baso % (Auto) Lymph # (Auto) [place] # (Auto) Eos # (Auto) Baso # (Auto) Abs Immat Gran (auto) Absolute Neuts (auto) Absolute Nucleated RBC Nucleated RBC % Sodium Potassium Chloride Carbon Dioxide Anion Gap BUN Creatinine Estim Creat Clear Calc Estimated GFR Glucose POC Capillary Glucose 97 97 Calcium Blood Type O Positive Antibody Screen Negative 07/28/24 07/28/24 07/28/24 17:02 17:41 20:07 WBC 14.5 H RBC 3.86 L Hgb 11.5 L Hct 34.8 L MCV 90.2 MCH 29.8 MCHC 33.0 RDW 13.0 Plt Count 266 MPV 8.6 Immature Gran % (Auto) 0.6 H Neut % (Auto) 87.5 H Lymph % (Auto) 5.6 L [place] % (Auto) 5.9 Eos % (Auto) 0.1 Baso % (Auto) 0.3 Lymph # (Auto) 0.81 L [place] # (Auto) 0.9 H Eos # (Auto) 0.0 Baso # (Auto) 0.0 Abs Immat Gran (auto) 0.08 H Absolute Neuts (auto) 12.7 H Absolute Nucleated RBC 0.000 Nucleated RBC % 0.0 Sodium 132 L Potassium 4.3 Chloride 100 Carbon Dioxide 24 Anion Gap 8 BUN 16 Creatinine 0.47 L Estim Creat Clear Calc 100 Estimated GFR > 60 Glucose 132 H POC Capillary Glucose 125 H 140 H Calcium 8.4 Blood Type Antibody Screen 07/29/24 06:02 WBC 8.4 RBC 3.70 L Hgb 10.9 L Hct 32.8 L MCV 88.6 MCH 29.5 MCHC 33.2 RDW 12.9 Plt Count 251 MPV 8.3 Immature Gran % (Auto) 0.5 Neut % (Auto) 77.2 H Lymph % (Auto) 10.2 L [place] % (Auto) 10.4 H Eos % (Auto) 1.3 Baso % (Auto) 0.4 Lymph # (Auto) 0.86 L [place] # (Auto) 0.9 H Eos # (Auto) 0.1 Baso # (Auto) 0.0 Abs Immat Gran (auto) 0.04 H Absolute Neuts (auto) 6.5 Absolute Nucleated RBC 0.000 Nucleated RBC % 0.0 Sodium 131 L Potassium 4.2 Chloride 100 Carbon Dioxide 24 Anion Gap 7 BUN 18 H Creatinine 0.50 L Estim Creat Clear Calc 94 Estimated GFR > 60 Glucose 109 POC Capillary Glucose Calcium 8.5 Blood Type Antibody Screen
[2024-07-29] MEDS: metFORMIN HCL 500 MG TABLET 1000 MG BY MOUTH (09:09)
[2024-07-29] MEDS: VENLAFAXINE HCL XR 75 MG CAP.ER.24H 150 MG BY MOUTH (09:09)
[2024-07-29] MEDS: lisinopriL 20 MG TABLET BY MOUTH (09:09)
[2024-07-29] MEDS: FAMOTIDINE 20 MG TABLET PO (09:09)
[2024-07-29] MEDS: SENNA/DOCUSATE SODIUM TABLET 2 TAB PO (09:09)
[2024-07-29] MEDS: LORATADINE 10 MG TABLET PO (09:09)
[2024-07-29] MEDS: ASPIRIN 81 MG ENTERIC TABLET PO (09:09)
[2024-07-29 09:10] VITALS: PULSE 88
[2024-07-29] MEDS: CELECOXIB 200 MG CAPSULE PO (09:10)
[2024-07-29] MEDS: METOPROLOL TARTRATE 25 MG TABLET BY MOUTH (09:10)
[2024-07-29] MEDS: polyethylene glycoL 3350 17 GM POWD.PACK PO (09:10)
[2024-07-29 09:24] VITALS: BP 118/53; PULSE 84; RESP 18; TEMP 35.7; O2SAT 99
== END 2024-07-29 13:13 | disposition home or self-care (01) ==
LOC: ANHSURGERY 01:33 → ANHIMG 09:08 → ANHSURGERY 09:35 → ANH3MEDSUR 15:49
PROVIDERS: Physician Assistant Surgical; PCP Emergency Medicine; Visit Provider Orthopaedic Surgery
PROC: (CPT 27130; principal; 2024-07-28 13:30)
DX: M16.11 Unilateral primary osteoarthritis, right hip (principal); E11.9 Type 2 diabetes mellitus without complications; Z87.891 Personal history of nicotine dependence; E66.9 Obesity, unspecified; Z68.38 Body mass index [BMI] 38.0-38.9, adult
CPT/HCPCS: 27130; 36415; 73502; 80048; 82948; 85025; 86850; 86900; 86901; 97110; 97161; 97166; 97535; A9270; C1776; J0171; J0690; J1885; J2250; J2270; J2704; J2795; J3010; J7120

== ENCOUNTER 2024-11-04 13:41 | Outpatient (CLI) | payer MEDICARE, SELFPAY ==
--- OUTSIDE RECORDS SUMMARY | 2024-11-04 13:55 | XMS_ITS | Clinical Summary ---
Author Organization [facility] Address [facility] [place] [address] Care Team Providers Care Mold Laminator Name Role Phone Tonio Mobley MD Primary [...] 8:21 AM CDT Height 157.5 cm (5' 2) 10/17/2015 8:21 AM CDT Body Mass Index [...] Relevant to Health Maintenance Care Teams Mold Laminator Relationship Specialty Start Date End Date Tonio Mobley MD PCP - General 10/17/15
[2024-11-04 14:44] LABS: Hematocrit 39.4 % (37.0-47.0); Hemoglobin 12.9 g/dL (12.0-15.0); Immature Granulocyte Percent A 0.7 % (0-0.5); Lymphocytes Absolute Auto 1.39 K/mm3 (0.9-3.2); Mean Corpuscular HGB Conc 32.7 g/dl (32-36); Mean Corpuscular Hemoglobin 28.9 pg (26-34); Mean Corpuscular Volume 88.3 fl (80-100); Nucleated Red Blood Cells Absolute Auto 0.000 K/mm3 (0.0-0.012); Nucleated Red Blood Cells Perc 0.0 % (0.0-0.2); Platelet Count Result 262 k/mm3 (150-375); Red Blood Count 4.46 M/mm3 (4.2-5.4); White Blood Count 7.2 K/mm3 (4.5-10.0)
[2024-11-04 15:04] LABS: Albumin Level 4.3 g/dL (3.5-5.1)
[2024-11-04 15:06] LABS: Anion Gap 7 mmol/L (4-12); Blood Urea Nitrogen 20 mg/dL (7-17); Calcium 9.0 mg/dL (8.4-10.2); Carbon Dioxide 27 mmol/L (22-30); Chloride 97 mmol/L (98-107); Estimated Glomerular Filt Rate > 60; Glucose 113 mg/dL (65-110); Potassium 5.0 mmol/L (3.4-5.0); Sodium 131 mmol/L (137-145)
[2024-11-04 15:54] LABS: MRSA (PCR) NOT DETECTED (NOT DETECTE)
[2024-11-04 17:59] LABS: Hemoglobin A1C 5.3 % (<5.7)
== END 2024-11-04 13:42 | disposition home or self-care (01) ==
LOC: ANHSURGERY 13:49
PROVIDERS: Anesthesiology; PCP Emergency Medicine; Visit Provider Orthopaedic Surgery
DX: M16.12 Unilateral primary osteoarthritis, left hip (principal); E11.9 Type 2 diabetes mellitus without complications
CPT/HCPCS: 36415; 80048; 82040; 83036; 85025; 86850; 86900; 86901; 87641

== ENCOUNTER 2024-11-05 08:29 | Outpatient (CLI) | payer MEDICARE, SELFPAY ==
--- OUTSIDE RECORDS SUMMARY | 2024-11-05 08:32 | XMS_ITS | Clinical Summary ---
Author Organization [facility] Address [facility] [place] [address] Care Team Providers Care Therapeutic Consultant Name Role Phone Tonio Mobley MD Primary [...] Recently Relevant to Health Maintenance Care Teams Therapeutic Consultant Relationship Specialty Start Date End Date Tonio Mobley MD PCP - General 10/17/15
== END 2024-11-05 08:30 | disposition home or self-care (01) ==
LOC: ANHSURGERY 08:30
PROVIDERS: PCP Emergency Medicine; Visit Provider Orthopaedic Surgery
DX: M16.12 Unilateral primary osteoarthritis, left hip (principal); Z01.818 Encounter for other preprocedural examination
CPT/HCPCS: 80307

== ENCOUNTER 2024-11-10 01:18 | Day surgery (SDC) | payer MEDICARE, SELFPAY ==
[2024-10-29 09:20] VITALS: BMI 40.1
--- NOTE | 2024-10-29 09:55 | PC.NURSE ---
Report to the Outpatient Waiting Room, entrance under the green pavilion located off [facility], at time __10:30AM___ on date __11/10/24___. Planned Procedure Time: __12:30PM____.? Time changes happen often and if your time is changed the preop area will call you the afternoon before. - You and your visitor will be asked to self-screen and do not enter if you have any COVID symptoms. Please call surgeon if you need to reschedule. - A mask is optional within the hospital at this time. Patients may have clear liquids (water, carbonated beverages, clear teas, apple juice) until 3 hours prior to surgery (9:30AM) with a maximum of 20 ounces. - No food from midnight until time of surgery and no smoking, or chewing tobacco (or any form of nicotine). No chewing gum, candy or mints. Take only the following medications with a SIP of water on the morning of surgery: ___METOPROLOL, LEVOTHYROXINE, VENLAFAXINE MAY TAKE TRAMADOL NEEDED DO NOT STOP ANY OF YOUR OTHER PRESCRIPTION MEDICATIONS PRIOR TO SURGERY EXCEPT THE FOLLOWING Medications to discontinue per physician ___HOLD NAPROXEN(NSAIDS) AND ALL VITAMINS/SUPPLEMENTS 7 DAYS PRE-OP PER DR PASTRANA Date to take last dose 11/02/24 Please no make-up, nail ethiopian, hairspray, perfume, deodorant, or body powder the day of surgery.? No jewelry (including any body piercings) or valuables the day of surgery, leave them at home.? Please take a shower or bath the night before, or the morning of, surgery with an antibacterial soap.? Wear comfortable, loose fitting clothing.? - Jewelry must be removed prior to entering the operating room.? Rings and piercings that are not removed may be cut off. - The hospital will not accept responsibility for valuables.? - Please leave all valuables, including medications, at home the day of surgery. If you are going home after surgery, a licensed dray truck driver must drive you home.? - NO public transportation without another adult if you receive anesthesia. - We recommend that an adult stay with you for 24 hours following discharge. - We also recommend that you do not drive, make important decision, drink alcoholic beverages, or take any drugs that were not prescribed by your health care provider for at least 24 hours after your discharge time. Follow any additional instructions given to you from your surgeon. Telephone instructions given to PATIENT and asked if any additional questions and then verbalized understanding. Patient advised to call surgeon office or pre surgery nurse liaison [phone] if any additional questions.
[2024-11-10] VITALS (13 sets, daily range): BP systolic 105–155; BP diastolic 50–90; PULSE 92–109; RESP 10–18; TEMP 35.7–36.8; O2SAT 93–100
--- NOTE | ~2024-11-10 | XR_ITS ---
EXAMINATION: XR hip LT min 2V DATE: 11/10/2024 16:29 INDICATION: Left total hip arthroplasty TECHNIQUE: 2 views left hip FINDINGS: There is a left total hip arthroplasty in expected position. Subcutaneous gas with soft tissue swelling are consistent with recent surgery. IMPRESSION: 1. Recent left total hip arthroplasty. Reviewed, dictated and finalized at location O.
--- OUTSIDE RECORDS SUMMARY | 2024-11-10 01:20 | XMS_ITS | Clinical Summary ---
Author Organization [facility] Address [facility] [place] [address] Care Team Providers Care Summer Camp Counselor Name Role Phone Tonio Mobley MD Primary [...] Recently Relevant to Health Maintenance Care Teams Summer Camp Counselor Relationship Specialty Start Date End Date Tonio Mobley MD PCP - General 10/17/15
--- NOTE | 2024-11-10 09:52 | WPDHPUPDATE1 ---
History and Physical Update Update Date/Time: 11/10/24 09:52 History and Physical has been reviewed, including an updated exam of the patient. There are NO changes in the patient's condition. Risks, benefits, and alternatives have been discussed and questions answered. Patient agrees to proceed with procedure.
[2024-11-10] MEDS: ACETAMINOPHEN 500 MG TABLET 1000 MG PO (11:00)
[2024-11-10] MEDS: TRANEXAMIC ACID 1,000MG/ISO100 1,000 MG/100 ML BAG 200 MG IVPB (11:35)
[2024-11-10 11:47] LABS: Sodium 129 mmol/L (137-145)
[2024-11-10] MEDS: SODIUM CHLORIDE 0.9% IV 1,000 ML 30 ML IV CONT (11:55)
--- NOTE | 2024-11-10 13:00 | WPDANESEPPF ---
Anes - Initial Pre Proc Eval Procedure: Operation Date: 11/10/24 12:30 Proposed Procedures p Left Total Hip Arthroplasty - Stewart Domingo MD Date/Time: 11/10/24 13:00 Surgeon: Stewart Domingo MD Pre Op Diagnosis: primary OA left hip Patient Data Age: 64 Gender: F Height: 1.53 m Weight: 95 kg Last Vital Signs Temp 98.3 F 11/10/24 10:35 Pulse 94 11/10/24 10:35 Resp 18 11/10/24 10:35 BP 121/75 11/10/24 10:35 Pulse Ox 100 11/10/24 10:35 O2 Del Method Room Air 11/10/24 10:35 Allergies Allergy/AdvReac Type Severity Reaction Status Date / Time Penicillins Allergy Unknown Rash Verified 11/10/24 11:17 Home Medications ?Medication ?Instructions ?Recorded ?Confirmed ?Type multivitamin 1 tablet PO .COMPLEX 04/19/19 11/10/24 History omega 7-bug-dax-fish oil 300 2 cap PO BID 04/20/19 10/29/24 History mg-1,000 mg capsule (Fish Oil) blood sugar diagnostic (Accu-Chek #100 ea 05/15/21 10/29/24 Rx Patricia Plus test strips) fluticasone propionate 50 See Rx Instructions .Route 09/02/23 10/29/24 Rx mcg/actuation nasal .COMPLEX #32 grams spray,suspension loratadine 10 mg tablet 10 mg PO DAILY 09/09/23 11/10/24 History metformin 1,000 mg tablet See Rx Instructions .Route 01/16/24 11/10/24 Rx .COMPLEX #180 tabs atorvastatin 20 mg tablet See Rx Instructions .Route 02/07/24 11/10/24 Rx .COMPLEX #90 tabs levothyroxine 75 mcg tablet See Rx Instructions .Route 02/07/24 11/10/24 Rx .COMPLEX #90 tabs ascorbic acid (vitamin C) 1,000 mg 1 g PO DAILY 07/07/24 11/10/24 History capsule cholecalciferol (vitamin D3) 50 2,000 unit PO DAILY 07/07/24 11/10/24 History mcg (2,000 unit) capsule inulin-sorbitol 2 gram chewable 4 tablet PO DAILY 07/07/24 10/29/24 History tablet (Fiber Supplement (inulin)) vitamin B complex 1 cap PO DAILY 07/07/24 11/10/24 History metoprolol tartrate 25 mg tablet See Rx Instructions .Route 08/24/24 11/10/24 Rx .COMPLEX #180 tabs semaglutide 2 mg/dose (8 mg/3 mL) See Rx Instructions .Route 08/24/24 11/10/24 Rx subcutaneous pen injector (Ozempic) .COMPLEX #3 mL naproxen 500 mg tablet See Rx Instructions .Route 09/07/24 10/29/24 Rx .COMPLEX #180 tabs tramadol 50 mg tablet 50 mg PO Q6H PRN pain #30 tabs 09/07/24 11/10/24 Rx lisinopril 20 mg tablet See Rx Instructions .Route 10/05/24 11/10/24 Rx .COMPLEX #90 tabs venlafaxine 150 mg See Rx Instructions .Route 10/07/24 11/10/24 Rx capsule,extended release 24 hr .COMPLEX #90 caps cyclobenzaprine 10 mg tablet 10 mg PO TID PRN Muscle Spasms #90 10/20/24 10/29/24 Rx tabs Laboratory Tests 11/10/24 11/10/24 11:12 11:24 Sodium 129 L mmol/L (137-145) POC Capillary Glucose 89 mg/dl (65-105) Patient hx anesthesia problems: none Family hx anesthesia problems: none Results Review: All pre-operative results and documents have been reviewed as part of the pre-operative evaluation. [facility] Past Medical History Medical History Degenerative joint disease of right hip Acute recurrent maxillary sinusitis Sinusitis chronic, frontal Lumbar stenosis with neurogenic claudication Cervical spondylolysis Acute sinusitis Acute otitis externa of left ear Body mass index (BMI) of 50-59.9 in adult (02/18/17) Bronchitis Cervical spine pain Elevated liver enzymes Rhinosinusitis Grieving Diabetes mellitus, type II Essential (primary) hypertension Mild episode of recurrent major depressive disorder Mixed hyperlipidemia Morbid (severe) obesity due to excess calories Osteoarthritis of lower back Other chronic pain Post-nasal drip Restless leg syndrome, controlled Vitamin D deficiency Surgical History Surgical History History of hip surgery right Family History Family History Father Family history of malignant neoplasm of brain, Onset Age: 68 Mother Family history of malignant neoplasm of breast in first degree relative, Onset Age: 64 Sibling Alcoholism Cerebrovascular accident Thyroid disorder Father Cancer Hypertension Mother Cancer Diabetes mellitus Depression Grandparent Diabetes mellitus Other Lung cancer Social History Social History Social History: Omaira is very confident filling out medical forms. In the last 12 months she has not received assistance from an organization or program. Smoking packs per day: 1 Smoking cigarettes per day: 20.0 Years smoked: 25 Smoking pack-years: 25.00 Smoking status: Former smoker Second hand tobacco smoke exposure: No Alcohol intake: former Alcohol use details: HEAVY DRINKER UNTIL ~2001 Substance use: never Substance use type: does not use Do You Feel Safe in your Home?: Yes Lack of Transportation: No Lack of Food: Never True Current Housing: I Have Housing Concerned About Future Housing: No Difficulty Paying Gas/Electric Bills: No Difficulty Paying for Meds: No Currently Unemployed: No Education: High School Diploma/GED Difficulty w/ Childcare or Family Care: No Living arrangements: with family Gender identity (if verbalized by the patient): Female Spiritual care concerns: No Agree to blood products: Yes Anes - Eval Final PreProcedure Day of Procedure 11/10/24 13:00 Patient weight: morbidly obese Heart: regular rate and rhythm Lungs: decreased breath sounds Airway: Mallampati scale class III Neurological: alert and oriented Last oral intake: >/= 8 hours ASA classification: III Emergent: no Anesthetic plan: proceed Anesthesia type and monitoring: general ETT and standard monitoring Results Review: All pre-operative results and documents have been reviewed as part of the pre-operative evaluation. Informed Consent: The patient's anesthetic plan and its attendant risks and benefits were discussed with the patient/family/POA. Questions were solicited and answers provided to the satisfaction of the patient/family/POA.
[2024-11-10] MEDS: ceFAZolin 2 GM in SODIUM CHLORIDE 0.9% IV 50 ML 100 ML IVPB ×2 (13:07→20:39)
[2024-11-10] MEDS: SODIUM CHLORIDE 0.9% IV 37.7 ML, MORPHINE SULFATE INJ (*CRX) 2 MG, ROPivacaine HCL 1% 2... INFILTRATE (13:43)
[2024-11-10] MEDS: LACTATED RINGERS 1,000 ML 30 ML IV CONT (15:20)
--- NOTE | 2024-11-10 15:32 | P.OP_ITS ---
Procedure Note - Detailed Date of Procedure 11/10/24 Pre-op Diagnosis Left hip degenerative arthritis. Post-op Diagnosis Same Procedure Performed Left Total Hip Arthroplasty Surgeon Stewart Domingo MD [employer] Operations Engineer Gilma Moya PA-C Anesthesia General Findings End-stage disease. Very small bone stature. Description of Procedure The patient was given preoperative antibiotics. A general anesthetic was administered. The patient was carefully placed in the lateral decubitus position on the PEG board. The shoulders and hips were carefully positioned for component and leg length positioning reference. The hip was prepped and draped in the usual sterile fashion. A longitudinal incision was created over the posterior aspect of the greater trochanter. Careful dissection was brought down through the deep fascia with electrocautery. A minimally invasive optimized posterior approach to the hip was performed. The short external rotators and capsule were taken down in an L-shaped capsulotomy. The tissue was tagged for later repair using number 2 high strength suture. The femoral neck was measured and taken in situ. The femoral head was removed. The acetabulum was carefully exposed. The inferior capsule was released. The labrum was resected. The acetabulum was sequentially reamed to the intended cup size. The cup was impacted into position with excellent press-fit. Typical anatomic landmarks, including the bony contact points as well as the inferior transverse acetabular ligament were used to confirm cup positioning with preoperative templating. Attention was turned to the femur, which was carefully exposed. The hip was reamed and then broached sequentially. Excellent press-fit was obtained with the broach. The hip was trialed. Measurements were utilized, including the lesser trochanter as well as the center of the femoral head and the tip of the trochanter, and excellent assessment of the offset and leg lengths were confirmed. The real component was impacted into position. Trialing confirmed appropriate leg length and offset with soft tissue balancing as well apparent feel of the leg, both at the knee and the heel. Soft tissues were assessed using the the iliotibial band. Reduction of the posterior capsule and external rotators were also used as a secondary assessment. The hip was copiously irrigated with pulsatile lavage periodically throughout the procedure. The real components were then assembled and reduced. The hip was stable throughout typical maneuvers, including extension, external rotation to 70 degrees, the position of sleep as well as flexion to 90 degrees with internal rotation past 35 degrees. The shake test confirmed stability without impingement. Osteophytes were removed as necessary. The short external rotators and capsule were repaired back to the posterior trochanter through drill holes. The deep fascia was repaired with running number 2 barbed suture, followed by 2-0 Stratafix suture and 3-0 Stratafix suture in the dermis. Steri-Strips were placed on the skin, followed by a sterile occlusive dressing. There were no complications. Meticulous hemostasis was maintained with the AquaMantys device. The patient was brought to the recovery room in stable condition. There were no complications. Physician assistant auto center manager, Gilma Moya PA-C, required for surgery; including patient positioning, draping, tissue retraction, maintaining instrument position, hip dislocation/ relocation, wound closure, and dressing placement. Implants The Josue Insignia hip stem, high offset size 1 , was utilized with excellent press-fit. The 46 mm Trident II acetabular component was impacted with excellent press-fit stability. Standard polyethylene liner the +0, 32 mm Biolox ceramic femoral head was utilized. Estimated Blood Loss 200 Drains No Packing No Pathology None sent Complications No immediate complications Condition Stable Disposition PACU [facility] Billing Surgery - Charge Forward: Surgery Billing
[2024-11-10] MEDS: fentaNYL CITRATE INJ (*CRX) 100 MCG/2 ML VIAL 25 MCG IV PUSH ×4 (15:53→16:12)
--- NOTE | 2024-11-10 16:40 | PC.NURSE ---
This patient, Omaira Tillman, was admitted to 3 [facility] Surg Room 326-01. Patient/family oriented to hospital policies and general routines including ID bracelet, bed and alarms, visiting hours, pain management, procedures, bathroom and other care routines, personal items, smoking policy, room service/diet, and visiting hours. Information on how to activate the Rapid Response Team has been discussed. Patient/Family are encouraged to report perceived risks to care and to ask questions if they do not understand what they are told or what they should do.
[2024-11-10] MEDS: SENNA/DOCUSATE SODIUM TABLET 2 TAB PO (17:13)
[2024-11-10] MEDS: ACETAMINOPHEN 325 MG TABLET 650 MG PO (17:13)
[2024-11-10] MEDS: oxyCODONE/ACETAMINOPHEN (*CRX) 5-325 MG TABLET 1 TABLET PO (17:14)
[2024-11-10] MEDS: SODIUM CHLORIDE 0.9% IV 1,000 ML 125 ML IV CONT (17:15)
[2024-11-10 17:57] LABS: Hematocrit 36.0 % (37.0-47.0); Hemoglobin 12.0 g/dL (12.0-15.0); Immature Granulocyte Percent A 0.5 % (0-0.5); Lymphocytes Absolute Auto 0.48 K/mm3 (0.9-3.2); Mean Corpuscular HGB Conc 33.3 g/dl (32-36); Mean Corpuscular Hemoglobin 29.5 pg (26-34); Mean Corpuscular Volume 88.5 fl (80-100); Nucleated Red Blood Cells Absolute Auto 0.000 K/mm3 (0.0-0.012); Nucleated Red Blood Cells Perc 0.0 % (0.0-0.2); Platelet Count Result 240 k/mm3 (150-375); Red Blood Count 4.07 M/mm3 (4.2-5.4); White Blood Count 11.3 K/mm3 (4.5-10.0)
[2024-11-10 18:08] LABS: Anion Gap 7 mmol/L (4-12); Blood Urea Nitrogen 18 mg/dL (7-17); Calcium 8.7 mg/dL (8.4-10.2); Carbon Dioxide 27 mmol/L (22-30); Chloride 96 mmol/L (98-107); Estimated CRCL calculation 86 ml/min; Estimated Glomerular Filt Rate > 60; Glucose 145 mg/dL (65-110); Potassium 4.0 mmol/L (3.4-5.0); Sodium 130 mmol/L (137-145)
[2024-11-10] MEDS: oxyCODONE/ACETAMINOPHEN (*CRX) 10-325 MG TABLET 1 TAB PO (20:37)
[2024-11-10] MEDS: METOPROLOL TARTRATE 25 MG TABLET PO (20:37)
[2024-11-10] MEDS: FAMOTIDINE 20 MG TABLET PO (20:38)
[2024-11-10] MEDS: ASPIRIN 81 MG ENTERIC TABLET PO (20:38)
[2024-11-11 01:05] VITALS: BP 120/59; PULSE 93; RESP 16; TEMP 36.5; O2SAT 98
[2024-11-11] MEDS: oxyCODONE/ACETAMINOPHEN (*CRX) 5-325 MG TABLET 1 TABLET PO (01:36)
[2024-11-11 05:50] LABS: Hematocrit 32.5 % (37.0-47.0); Hemoglobin 10.6 g/dL (12.0-15.0); Immature Granulocyte Percent A 0.4 % (0-0.5); Lymphocytes Absolute Auto 1.32 K/mm3 (0.9-3.2); Mean Corpuscular HGB Conc 32.6 g/dl (32-36); Mean Corpuscular Hemoglobin 28.9 pg (26-34); Mean Corpuscular Volume 88.6 fl (80-100); Nucleated Red Blood Cells Absolute Auto 0.000 K/mm3 (0.0-0.012); Nucleated Red Blood Cells Perc 0.0 % (0.0-0.2); Platelet Count Result 227 k/mm3 (150-375); Red Blood Count 3.67 M/mm3 (4.2-5.4); White Blood Count 10.1 K/mm3 (4.5-10.0)
[2024-11-11 06:02] VITALS: BP 115/76; PULSE 98; RESP 18; TEMP 36.5; O2SAT 96
[2024-11-11] MEDS: ACETAMINOPHEN 325 MG TABLET 650 MG PO (06:21)
[2024-11-11] MEDS: ceFAZolin 2 GM in SODIUM CHLORIDE 0.9% IV 50 ML 100 ML IVPB (06:21)
[2024-11-11] MEDS: LEVOTHYROXINE SODIUM 75 MCG TABLET BY MOUTH (06:22)
[2024-11-11 06:31] LABS: Anion Gap 5 mmol/L (4-12); Blood Urea Nitrogen 20 mg/dL (7-17); Calcium 8.5 mg/dL (8.4-10.2); Carbon Dioxide 27 mmol/L (22-30); Chloride 97 mmol/L (98-107); Estimated CRCL calculation 80 ml/min; Estimated Glomerular Filt Rate > 60; Glucose 95 mg/dL (65-110); Potassium 4.5 mmol/L (3.4-5.0); Sodium 129 mmol/L (137-145)
[2024-11-11 08:53] VITALS: BP 128/61; PULSE 93; RESP 16; TEMP 36.6; O2SAT 99
[2024-11-11] MEDS: SENNA/DOCUSATE SODIUM TABLET 2 TAB PO (08:56)
[2024-11-11] MEDS: LORATADINE 10 MG TABLET PO (08:56)
[2024-11-11] MEDS: ASPIRIN 81 MG ENTERIC TABLET PO (08:56)
[2024-11-11] MEDS: VENLAFAXINE HCL XR 75 MG CAP.ER.24H 150 MG BY MOUTH (08:59)
[2024-11-11] MEDS: FAMOTIDINE 20 MG TABLET PO (08:59)
[2024-11-11] MEDS: ATORVASTATIN 20 MG TABLET BY MOUTH (09:00)
[2024-11-11 09:01] VITALS: PULSE 107
[2024-11-11] MEDS: METOPROLOL TARTRATE 25 MG TABLET PO (09:01)
--- NOTE | 2024-11-11 09:15 | PM.EVENT ---
Event Note Event Note Event Note: Spoke with the primary care team who state that the consult is no longer needed as patient is being discharged home today.
== END 2024-11-11 09:45 | disposition home or self-care (01) ==
LOC: ANHSURGERY 15:29 → ANH3MEDSUR 16:43
PROVIDERS: Anesthesiology; Physician Assistant Surgical; PCP Emergency Medicine; Visit Provider Orthopaedic Surgery
PROC: (CPT 27130; principal; 2024-11-10 12:30)
DX: M16.12 Unilateral primary osteoarthritis, left hip (principal); E11.9 Type 2 diabetes mellitus without complications; Z87.891 Personal history of nicotine dependence; E66.01 Morbid (severe) obesity due to excess calories; Z68.41 Body mass index [BMI] 40.0-44.9, adult
CPT/HCPCS: 27130; 36415; 73502; 80048; 82948; 84295; 85025; 97110; 97161; 97165; J0690; A9270; C1776; J0166; J1100; J1171; J1885; J2003; J2270; J2405; J2704; J2795; J3010; J7030; J7040; J7120; J7512

== ENCOUNTER 2025-01-21 12:39 | Outpatient (CLI) | payer MEDICARE, SELFPAY ==
--- NOTE | ~2025-01-21 | XR_ITS ---
EXAMINATION: XR hand LT 2V DATE: 01/21/2025 13:05 INDICATION: Pain TECHNIQUE: Left hand x-rays were obtained. COMPARISON: None. FINDINGS: Mild degenerative appearing changes in the interphalangeal joints, as well as along the radial aspect of the carpal bones. No gross acute or aggressive bony or soft tissue process seen. No suspicious radiopaque foreign body. IMPRESSION: 1. Mild scattered osteoarthritic appearing degenerative changes. Reviewed, dictated and finalized at location A. [facility]
== END 2025-01-21 12:40 | disposition home or self-care (01) ==
LOC: MICIMG 12:42
PROVIDERS: PCP Emergency Medicine; Visit Provider Emergency Medicine
DX: M79.642 Pain in left hand (principal)
CPT/HCPCS: 73120